=== PATIENT | male | born 1950 | race Caucasian/White ===

== ENCOUNTER → 2017-12-02 | Outpatient (CLI) | payer MEDICARE, BC ==
[2017-12-02 15:01] LABS: Basophils # (A) 0.1 k/uL (0-0.2); Basophils % (A) 1 %; Eosinophils # (A) 0.2 k/uL (0-0.7); Eosinophils % (A) 4 %; HCT 41.7 % (39.0-53.0); HGB 13.7 gm/dL (13.0-17.5); Lymphocytes # (A) 0.7 k/uL (1.0-4.8); Lymphocytes % (A) 13 %; MCH 31.2 pg (25.0-35.0); MCHC 32.8 g/dL (31.0-37.0); Mean Platelet Volume 7.8; Monocytes # (A) 0.5 k/uL (0-1.0); Monocytes % (A) 9 %; Neutrophils # (A) 3.8 k/uL (1.3-7.7); Neutrophils % (A) 71 %; Platelet Count 178 k/uL (150-450); RBC 4.39 m/uL (4.30-5.90); WBC 5.4 k/uL (3.8-10.6)
[2017-12-02 15:17] LABS: Albumin 4.5 g/dL (3.5-5.0); Calcium 10.5 mg/dL (8.4-10.2); Potassium 5.2 mmol/L (3.5-5.1); Total Bilirubin 0.2 mg/dL (0.2-1.3); Total Protein 7.4 g/dL (6.3-8.2)
[2017-12-02 15:33] LABS: T4, Free (Free Thyroxine) 0.97 ng/dL (0.78-2.19)
[2017-12-02 18:37] LABS: Iron Saturation 27.41 (15.00-50.00)
== END | disposition home or self-care (01) ==
LOC: LABWHC1 14:36
PROVIDERS: ATTEND Internal Medicine
DX: C34.90 Malignant neoplasm of unspecified part of unspecified bronchus or lung (principal); E78.5 Hyperlipidemia, unspecified; R79.89 Other specified abnormal findings of blood chemistry; D50.9 Iron deficiency anemia, unspecified
CPT/HCPCS: 36415; 80053; 80061; 82728; 83540; 83550; 84439; 84443; 85025

== ENCOUNTER → 2018-06-27 | Outpatient (CLI) | payer MEDICARE, BC | END | disposition home or self-care (01) | LOC: LABWHC1 07:26 | PROVIDERS: ATTEND Psychiatry & Neurology Psychiatry | DX: F25.9 Schizoaffective disorder, unspecified (principal) | CPT/HCPCS: 36415; 80164; 84450; 84460 ==

== ENCOUNTER → 2019-03-02 | Outpatient (CLI) | payer MEDICARE, BC ==
[2019-03-02 07:45] LABS: Basophils # (A) 0.1 k/uL (0-0.2); Basophils % (A) 2 %; Eosinophils # (A) 0.5 k/uL (0-0.7); Eosinophils % (A) 9 %; HCT 44.7 % (39.0-53.0); HGB 14.9 gm/dL (13.0-17.5); Lymphocytes % (A) 16 %; MCH 32.2 pg (25.0-35.0); MCHC 33.3 g/dL (31.0-37.0); MCV 96.9 fL (80.0-100.0); Mean Platelet Volume 7.2; Monocytes # (A) 0.6 k/uL (0-1.0); Monocytes % (A) 9 %; Neutrophils # (A) 3.8 k/uL (1.3-7.7); Neutrophils % (A) 62 %; Platelet Count 175 k/uL (150-450); RBC 4.61 m/uL (4.30-5.90); RDW 12.8 % (11.5-15.5); WBC 6.1 k/uL (3.8-10.6)
[2019-03-02 11:15] LABS: African American GFR (CKD) 72.6 (60.0-200.0); Albumin 4.3 g/dL (3.80-4.90); Albumin/Globulin Ratio 1.72 (1.60-3.17); Anion Gap 7.2 mmol/L (4.00-12.00); BUN/Creat Ratio 20.83 Ratio (12.00-20.00); Calcium 9.8 mg/dL (8.7-10.3); Carbon Dioxide 27.8 mmol/L (21.6-31.8); Chol/HDL Ratio 2.14; Globulin 2.5 g/dL (1.6-3.3); LDL Cholesterol,Calculated 74.8 mg/dL (0.0-131.0); Total Bilirubin 0.4 mg/dL (0.3-1.2); Total Protein 6.8 g/dL (6.2-8.2); VLDL Calculation 17.2 mg/dL (5.00-40.00)
[2019-03-02 11:23] LABS: T4, Free (Free Thyroxine) 1.3 ng/dL (0.80-1.80)
== END | disposition home or self-care (01) ==
LOC: LABWHC1 07:13
PROVIDERS: ATTEND Internal Medicine
DX: Z00.00 Encounter for general adult medical examination without abnormal findings (principal); E78.5 Hyperlipidemia, unspecified; F25.9 Schizoaffective disorder, unspecified
CPT/HCPCS: 36415; 80053; 80061; 80164; 84439; 84443; 85025

== ENCOUNTER → 2019-08-13 | Outpatient (CLI) | payer MEDICARE, BC ==
[2019-08-13 17:32] LABS: Basophils # (A) 0.1 k/uL (0-0.2); Basophils % (A) 1 %; Eosinophils # (A) 0.3 k/uL (0-0.7); Eosinophils % (A) 5 %; HGB 12.9 gm/dL (13.0-17.5); Lymphocytes # (A) 0.6 k/uL (1.0-4.8); Lymphocytes % (A) 11 %; MCH 32.7 pg (25.0-35.0); MCHC 32.3 g/dL (31.0-37.0); MCV 101.2 fL (80.0-100.0); Mean Platelet Volume 8.7; Monocytes # (A) 0.6 k/uL (0-1.0); Monocytes % (A) 10 %; Neutrophils % (A) 69 %; Platelet Count 175 k/uL (150-450); RBC 3.95 m/uL (4.30-5.90); RDW 13.1 % (11.5-15.5); WBC 5.8 k/uL (3.8-10.6)
[2019-08-14 00:52] LABS: African American GFR (CKD) 59.8 (60.0-200.0); Anion Gap 7.1 mmol/L (4.00-12.00); Calcium 10.3 mg/dL (8.7-10.3); Carbon Dioxide 29.9 mmol/L (21.6-31.8); Non-African American GFR(CKD) 51.6 (60.0-200.0)
[2019-08-14 10:14] LABS: Potassium 6.1 mmol/L (3.5-5.5)
== END | disposition home or self-care (01) ==
LOC: LABWHC1 16:19
PROVIDERS: ATTEND Internal Medicine
DX: R06.02 Shortness of breath (principal); R06.00 Dyspnea, unspecified
CPT/HCPCS: 36415; 80048; 85025; 85379

== ENCOUNTER 2019-08-14 10:52 | Emergency (ER) | payer MEDICARE, BC ==
[2019-08-14 11:03] VITALS: TEMP 98
--- NOTE | 2019-08-14 11:24 | ED ---
General Adult HPI - General Chief complaint: Recheck/Abnormal Lab/Rx Stated complaint: abn labs, SOB Time Seen by Provider: 08/14/19 11:10 Source: patient, RN notes reviewed Mode of arrival: ambulatory Limitations: no limitations - History of Present Illness Initial comments: Patient is a pleasant 69-year-old male presenting to the emergency department with abnormal labs. Patient did see Dr. Bashir yesterday and had blood work done. Call received today with potassium 6.1 and recommended coming to the emergency Center. Patient has had some cough and difficulty breathing. Patient does have history of previous no neck to be secondary to lung cancer. Patient was started on antibiotics yesterday. Patient did have some discomfort right lower ribs however that has resolved. - Related Data Home Medications Medication Instructions Recorded Confirmed Amantadine HCl [Symmetrel] 100 mg PO BID 12/10/14 11/30/15 LORazepam [Ativan] 1 mg PO TID 12/10/14 11/30/15 Levothyroxine Sodium [Synthroid] 25 mcg PO DAILY 12/10/14 11/30/15 QUEtiapine [SEROquel] 200 mg PO HS 12/10/14 11/30/15 Thiothixene [Navane] 20 mg PO TID 12/10/14 11/30/15 diphenhydrAMINE [Benadryl] 50 mg PO HS 12/10/14 11/30/15 Atorvastatin [Lipitor] 40 mg PO DAILY 11/30/15 11/30/15 Docusate [Colace] 100 mg PO TID PRN 11/30/15 11/30/15 Metoprolol Tartrate [Lopressor] 25 mg PO BID 11/30/15 11/30/15 Mirtazapine [Remeron] 15 mg PO HS 11/30/15 11/30/15 Previous Rx's Medication Instructions Recorded Aspirin 325 mg PO DAILY #30 tab 12/16/14 Allergies Allergy/AdvReac Type Severity Reaction Status Date / Time No Known Allergies Allergy Verified 11/30/15 17:50 Review of Systems ROS Statement: Those systems with pertinent positive or pertinent negative responses have been documented in the HPI. ROS Other: All systems not noted in ROS Statement are negative. Constitutional: Denies: fever Eyes: Denies: eye pain ENT: Denies: ear pain Respiratory: Reports: cough Cardiovascular: Reports: as per HPI Endocrine: Denies: fatigue Gastrointestinal: Denies: abdominal pain Genitourinary: Denies: dysuria Musculoskeletal: Denies: back pain Skin: Denies: rash Neurological: Denies: weakness Past Medical History Past Medical History: Cancer, Chest Pain / Angina, GERD/Reflux, Thyroid Disorder Additional Past Medical History / Comment(s): hx lung cancer History of Any Multi-Drug Resistant Organisms: None Reported Past Surgical History: Tonsillectomy Additional Past Surgical History / Comment(s): left pneumonectomy Past Anesthesia/Blood Transfusion Reactions: No Reported Reaction Past Psychological History: Anxiety, Depression, Schizophrenia Smoking Status: Former smoker Past Alcohol Use History: None Reported Past Drug Use History: None Reported - Past Family History Mother Family Medical History: No Reported History General Exam Limitations: no limitations General appearance: alert, in no apparent distress Head exam: Present: normocephalic Eye exam: Present: normal appearance, PERRL ENT exam: Present: normal oropharynx Neck exam: Present: normal inspection Respiratory exam: Present: rhonchi. Absent: chest wall tenderness Cardiovascular Exam: Present: regular rate, normal rhythm GI/Abdominal exam: Present: soft. Absent: tenderness Extremities exam: Present: normal inspection. Absent: pedal edema, calf tenderness Back exam: Present: normal inspection Neurological exam: Present: alert Psychiatric exam: Present: normal affect, normal mood Skin exam: Present: normal color Course Vital Signs 08/14/19 08/14/19 08/14/19 10:59 11:26 11:42 Temperature 98 F Pulse Rate 98 82 Respiratory 18 22 18 Rate Blood Pressure 100/69 120/88 O2 Sat by Pulse 97 97 Oximetry - Reevaluation(s) Reevaluation #1: 08/14/19 11:48 Case was discussed with Dr. Souza who is familiar with this patient and recommends potassium treatment and feels otherwise patient can likely be discharged EKG Findings - EKG Comments: EKG Findings:: Normal sinus rhythm 87. IL 186. QRS 92. QT 356. QTc 428. Left axis. Inferior Q waves. No acute ST change. Medical Decision Making - Medical Decision Making Patient reevaluated and resting comfortably in bed, symptom-free. Patient and family updated on results and need for follow-up. - Lab Data Result diagrams: 08/14/19 11:23 08/14/19 11:23 Lab Results 08/14/19 08/14/19 Range/Units 11:23 11:23 WBC 4.8 (3.8-10.6) k/uL RBC 4.07 L (4.30-5.90) m/uL Hgb 13.3 (13.0-17.5) gm/dL Hct 40.3 (39.0-53.0) % MCV 99.0 (80.0-100.0) fL MCH 32.7 (25.0-35.0) pg MCHC 33.0 (31.0-37.0) g/dL RDW 13.1 (11.5-15.5) % Plt Count 172 (150-450) k/uL Neutrophils % 72 % Lymphocytes % 10 % Monocytes % 8 % Eosinophils % 6 % Basophils % 1 % Neutrophils # 3.5 (1.3-7.7) k/uL Lymphocytes # 0.5 L (1.0-4.8) k/uL Monocytes # 0.4 (0-1.0) k/uL Eosinophils # 0.3 (0-0.7) k/uL Basophils # 0.1 (0-0.2) k/uL Sodium 141 (137-145) mmol/L Potassium 4.9 (3.5-5.1) mmol/L Chloride 105 (98-107) mmol/L Carbon Dioxide 24 (22-30) mmol/L Anion Gap 12 mmol/L BUN 28 H (9-20) mg/dL Creatinine 1.22 (0.66-1.25) mg/dL Est GFR (CKD-EPI)AfAm 71 (>60 ml/min/1.73 sqM) Est GFR (CKD-EPI)NonAf 61 (>60 ml/min/1.73 sqM) Glucose 115 H (74-99) mg/dL Calcium 10.4 H (8.4-10.2) mg/dL Phosphorus 3.7 (2.5-4.5) mg/dL Magnesium 2.0 (1.6-2.3) mg/dL Total Bilirubin 0.5 (0.2-1.3) mg/dL AST 56 (17-59) U/L ALT 51 H (4-49) U/L Alkaline Phosphatase 125 (38-126) U/L Total Protein 7.5 (6.3-8.2) g/dL Albumin 4.2 (3.5-5.0) g/dL Disposition Clinical Impression: Condition not found, Cough Disposition: HOME SELF-CARE Condition: Stable Instructions (If sedation given, give patient instructions): Acute Cough (ED) Additional Instructions: Please follow-up with Dr. Bashir in the next couple days for recheck. Return for difficulty breathing, fevers, worsening symptoms or other concerns. Is patient prescribed a controlled substance at d/c from ED?: No Referrals: Miguel Bashir MD [Primary Care Provider] - 1-2 days Time of Disposition: 12:27
[2019-08-14] MEDS ORDERED: SODIUM CHLORIDE 0.9% 500 ML 500 ML IV STA (11:35)
[2019-08-14] MEDS ORDERED: SODIUM CHLORIDE 0.9% 1,000 ML IV STA (11:35)
[2019-08-14 11:49] LABS: Basophils # (A) 0.1 k/uL (0-0.2); Basophils % (A) 1 %; Eosinophils # (A) 0.3 k/uL (0-0.7); Eosinophils % (A) 6 %; HCT 40.3 % (39.0-53.0); HGB 13.3 gm/dL (13.0-17.5); Lymphocytes # (A) 0.5 k/uL (1.0-4.8); Lymphocytes % (A) 10 %; MCH 32.7 pg (25.0-35.0); Mean Platelet Volume 8.5; Monocytes # (A) 0.4 k/uL (0-1.0); Monocytes % (A) 8 %; Neutrophils # (A) 3.5 k/uL (1.3-7.7); Neutrophils % (A) 72 %; Platelet Count 172 k/uL (150-450); RBC 4.07 m/uL (4.30-5.90); RDW 13.1 % (11.5-15.5); WBC 4.8 k/uL (3.8-10.6)
[2019-08-14 11:53] LABS: Albumin 4.2 g/dL (3.5-5.0); Calcium 10.4 mg/dL (8.4-10.2); Phosphorus 3.7 mg/dL (2.5-4.5); Potassium 4.9 mmol/L (3.5-5.1); Total Bilirubin 0.5 mg/dL (0.2-1.3); Total Protein 7.5 g/dL (6.3-8.2)
[2019-08-14 12:58] VITALS: BP 142/88; PULSE 78; RESP 16
== END 2019-08-14 12:57 | disposition home or self-care (01) ==
LOC: EC 10:52
DX: R05 Cough (principal); R06.00 Dyspnea, unspecified; R79.9 Abnormal finding of blood chemistry, unspecified; I20.9 Angina pectoris, unspecified; F41.9 Anxiety disorder, unspecified; F32.9 Major depressive disorder, single episode, unspecified; F20.9 Schizophrenia, unspecified; E07.9 Disorder of thyroid, unspecified; Z79.899 Other long term (current) drug therapy; Z79.890 Hormone replacement therapy; Z85.118 Personal history of other malignant neoplasm of bronchus and lung; Z87.891 Personal history of nicotine dependence; Z98.890 Other specified postprocedural states; E87.5 Hyperkalemia
CPT/HCPCS: 36415; 80053; 83735; 84100; 85025; 96360; 99285

== ENCOUNTER 2019-08-29 22:18 | Inpatient (IN) | payer MEDICARE, BC ==
[2019-08-29] MEDS ORDERED: SODIUM CHLORIDE 0.9% 1,000 ML IV STA (22:25)
[2019-08-29 22:27] LABS: Glucose,Whole Blood 205 mg/dL (75-99)
[2019-08-29] MEDS ORDERED: LORazepam 2 MG/ML INJ ONE ×3 (22:31→23:47)
[2019-08-29] MEDS: LORazepam 2 MG/ML INJ IM STA ×3 (22:33→22:53)
[2019-08-29 22:51] LABS: HCT 39.1 % (39.0-53.0); HGB 12.8 gm/dL (13.0-17.5); MCH 33.6 pg (25.0-35.0); MCHC 32.8 g/dL (31.0-37.0); MCV 102.5 fL (80.0-100.0); Macrocytosis Slight; Mean Platelet Volume 8.8; Platelet Count 181 k/uL (150-450); RBC 3.82 m/uL (4.30-5.90); RDW 12.7 % (11.5-15.5); WBC 7.5 k/uL (3.8-10.6)
[2019-08-29] MEDS ORDERED: PROPOFOL 100 ML IV ONE (22:51)
[2019-08-29 22:54] LABS: Partial Thromboplastin Time 22.1 sec (22.0-30.0); Prothrombin Time 10.6 sec (9.0-12.0)
[2019-08-29 22:58] LABS: Albumin 3.9 g/dL (3.5-5.0); Calcium 9.4 mg/dL (8.4-10.2); Potassium 5.5 mmol/L (3.5-5.1); Total Bilirubin 0.2 mg/dL (0.2-1.3)
[2019-08-29 23:32] LABS: Amorphous Sediment,Urine Occasional /hpf; Appearance,Urine Cloudy (Clear); Bacteria,Urine Rare /hpf; Bilirubin,Urine Negative (Negative); Blood,Urine Negative (Negative); Color,Urine Yellow; Glucose,Urine (UA) Negative (Negative); Hyaline Casts,Urine 72 /lpf (0-2); Ketones,Urine Negative (Negative); Leukocyte Esterase,Urine Negative (Negative); Mucus,Urine Rare /hpf; Nitrite,Urine Negative (Negative); Protein,Urine 1+ (Negative); RBC,Urine 2 /hpf (0-5); Specific Gravity,Urine 1.024 (1.001-1.035); Squamous Epithelial Cell,Urine <1 /hpf (0-4); Urobilinogen,Urine <2.0 mg/dL (<2.0); WBC,Urine 9 /hpf (0-5)
[2019-08-29] MEDS ORDERED: PROPOFOL 1,000 MG in EMPTY BAG 1 BAG IV ONE (23:32)
[2019-08-29 23:36] LABS: Cocaine Screen,Urine Not Detected (NotDetected); Phencyclidine Screen,Urine Not Detected (NotDetected); Urn Cannabinoid Scrn Not Detected (NotDetected)
[2019-08-29 23:37] LABS: Amphetamine Screen,Urine Not Detected (NotDetected); Barbiturate Screen,Urine Not Detected (NotDetected); Benzodiazepines Screen,Urine Detected (NotDetected); Methadone Screen, Urine Not Detected (NotDetected); Opiate Screen,Urine Not Detected (NotDetected); Oxycodone Screen, Urine Not Detected (NotDetected); Tricyclic Antidepressant,Urine Detected (NotDetected)
[2019-08-29] MEDS ORDERED: LORazepam 2 MG/ML INJ IV STA (23:45)
--- NOTE | 2019-08-29 23:48 | CT ---
EXAMINATION TYPE: CT chest wo con DATE OF EXAM: 08/29/2019 COMPARISON: HISTORY: AMS CT DLP: 320.5 mGycm Automated exposure control for dose reduction was used. Multiple axial sections were obtained from the thoracic inlet to the diaphragm with no contrast. There is endotracheal tube with the tip extending to the origin of the left mainstem bronchus. There is a left pneumonectomy. There is mild pleural fluid on the left side. There is shift of heart and me diastinum to the left side. There is hiatal hernia. There is 1.8 cm irregular infiltrate in the anter ior segment of the right upper lobe. The remainder of the right lung is clear. There is mild pulmonar y emphysema. There is some irregularity rounded filling defect in the right mainstem bronchus. This could be a muc ous plug or even small tumor. Thoracic spine is intact. Sternum is intact. I see no bony destructive process. Shoulder joints are i ntact. Visualized upper abdominal soft tissues appear intact. IMPRESSION: Endotracheal tube is low and could be pulled back 3 cm. There is obstructing lesion in the right main stem bronchus. This could be some mucous plugging or even small tumor. Follow-up recommended. Changes of left-sided pneumonectomy with volume loss and shift of heart to the left side. Small infiltrate anterior segment right upper lobe is nonspecific. Follow-up is recommended. Recurren t tumor is possible.
--- NOTE | 2019-08-29 23:52 | CT ---
EXAMINATION TYPE: CT brain wo con DATE OF EXAM: 08/29/2019 COMPARISON: 04/10/2012 HISTORY: AMS CT DLP: 1113.4 mGycm Automated exposure control for dose reduction was used. Exam performed with no contrast. There is cerebral cortical atrophy. There is no mass effect nor midline shift. There is no sign of in tracranial hemorrhage. The calvarium is intact. There is some mucosal thickening in the ethmoid air c ells. IMPRESSION: Cerebral atrophy. No acute intracranial abnormality. There is probably a 4 mm old lacunar infarct ant erior left internal capsule. No change compared to old exam.
[2019-08-30 00:06] LABS: Band Neutrophils % 5 %; Eosinophils # (M) 0.23 k/uL (0-0.7); Lymphocytes # (M) 0.45 k/uL (1.0-4.8); Metamyelocytes # (M) 0.08 k/uL (0); Metamyelocytes % 1 %; Neutrophils % (M) 81 %; Nucleated Red Blood Cells 0 /100 WBC (0-0); Total Cells Counted 100
[2019-08-30] MEDS ORDERED: ACETAMINOPHEN SUPPOSITORY 650 MG SUPP RECTAL PRN (00:27)
[2019-08-30] MEDS ORDERED: MORPHINE SULFATE 4 MG/ML SYRINGE IV PRN (00:27)
[2019-08-30] MEDS ORDERED: NALOXONE 0.4 MG/ML 1 ML VIAL IV PRN (00:27)
--- NOTE | 2019-08-30 00:31 | ED ---
SOB HPI - General Chief Complaint: Shortness of Breath Stated Complaint: Unresponsive Time Seen by Provider: 08/29/19 22:25 Source: patient, EMS Mode of arrival: EMS Limitations: altered mental status - History of Present Illness Initial Comments: 's patient is a 69-year-old man brought to be evaluated for shortness of breath and altered mental status. He does have history of previous left pneumonectomy due to cancer approximately 10 years ago. The patient had reportedly been eating hamburger upper tonight when he had a choking episode. He had a prolonged coughing episode and then continued to feel short of breath. He eventually became weak and less responsive and family called EMS. When EMS arrived, they stated that the patient was not responding to them, and the patient was therefore intubated. On arrival patient not able to give any h istory due to altered mental status. MD Complaint: shortness of breath Onset/Timin -: hour(s) - Related Data Home Medications Medication Instructions Recorded Confirmed Amantadine HCl [Symmetrel] 100 mg PO BID 12/10/14 11/30/15 LORazepam [Ativan] 1 mg PO TID 12/10/14 11/30/15 Levothyroxine Sodium [Synthroid] 25 mcg PO DAILY 12/10/14 11/30/15 QUEtiapine [SEROquel] 200 mg PO HS 12/10/14 11/30/15 Thiothixene [Navane] 20 mg PO TID 12/10/14 11/30/15 diphenhydrAMINE [Benadryl] 50 mg PO HS 12/10/14 11/30/15 Atorvastatin [Lipitor] 40 mg PO DAILY 11/30/15 11/30/15 Docusate [Colace] 100 mg PO TID PRN 11/30/15 11/30/15 Metoprolol Tartrate [Lopressor] 25 mg PO BID 11/30/15 11/30/15 Mirtazapine [Remeron] 15 mg PO HS 11/30/15 11/30/15 Previous Rx's Medication Instructions Recorded Aspirin 325 mg PO DAILY #30 tab 12/16/14 Allergies Allergy/AdvReac Type Severity Reaction Status Date / Time No Known Allergies Allergy Verified 11/30/15 17:50 Review of Systems ROS Statement: Those systems with pertinent positive or pertinent negative responses have been documented in the HPI. ROS Other: All systems not noted in ROS Statement are negative. Limitations: ROS unobtainable due to patients medical condition Respiratory: Reports: as per HPI, cough, dyspnea Past Medical History Past Medical History: Cancer, Chest Pain / Angina, GERD/Reflux, Thyroid Disorder Additional Past Medical History / Comment(s): hx lung cancer History of Any Multi-Drug Resistant Organisms: None Reported Past Surgical History: Tonsillectomy Additional Past Surgical History / Comment(s): left pneumonectomy Past Anesthesia/Blood Transfusion Reactions: No Reported Reaction Past Psychological History: Anxiety, Depression, Schizophrenia Smoking Status: Former smoker Past Alcohol Use History: None Reported Past Drug Use History: None Reported - Past Family History Mother Family Medical History: No Reported History General Exam Limitations: altered mental status General appearance: obtunded Head exam: Present: atraumatic, normocephalic Eye exam: Present: normal appearance, PERRL. Absent: scleral icterus, conjunctival injection ENT exam: Present: other (Endotracheal tube present) Neck exam: Present: normal inspection Respiratory exam: Present: rhonchi. Absent: wheezes, rales Cardiovascular Exam: Present: normal rhythm, tachycardia, normal heart sounds. Absent: systolic murmur, diastolic murmur, rubs, gallop GI/Abdominal exam: Present: soft. Absent: distended, tenderness, guarding, rebound, mass Extremities exam: Present: normal inspection, normal capillary refill. Absent: pedal edema, calf tenderness Back exam: Present: normal inspection Skin exam: Present: warm, dry, intact, normal color. Absent: rash Course Vital Signs 08/29/19 08/29/19 08/29/19 22:20 22:29 22:41 Temperature 97.8 F Pulse Rate 106 H 104 H 105 H Respiratory 18 18 20 Rate Blood Pressure 89/45 98/74 109/65 O2 Sat by Pulse 99 100 Oximetry 08/29/19 08/29/19 08/29/19 22:47 22:52 23:01 Temperature Pulse Rate 94 Respiratory 18 Rate Blood Pressure 93/70 107/77 79/51 O2 Sat by Pulse 100 Oximetry 08/29/19 08/29/19 08/29/19 23:24 23:38 23:52 Temperature Pulse Rate 86 84 85 Respiratory 19 18 20 Rate Blood Pressure 107/85 101/75 108/85 O2 Sat by Pulse 100 100 100 Oximetry - Reevaluation(s) Reevaluation #1: 08/30/19 00:[address] Souza, including CT result, and he anticipates bronch oscopy first thing in a.m. Medical Decision Making - Lab Data Result diagrams: 08/29/19 22:23 08/29/19 22:23 Lab Results 08/29/19 08/29/19 08/29/19 Range/Units 22:23 22:23 22:23 WBC 7.5 (3.8-10.6) k/uL RBC 3.82 L (4.30-5.90) m/uL Hgb 12.8 L (13.0-17.5) gm/dL Hct 39.1 (39.0-53.0) % MCV 102.5 H (80.0-100.0) fL MCH 33.6 (25.0-35.0) pg MCHC 32.8 (31.0-37.0) g/dL RDW 12.7 (11.5-15.5) % Plt Count 181 (150-450) k/uL Neutrophils % (Manual) 81 % Band Neutrophils % 5 % Lymphocytes % (Manual) 6 % Monocytes % (Manual) 4 % Eosinophils % (Manual) 3 % Metamyelocytes % 1 % Neutrophils # (Manual) 6.40 (1.3-7.7) k/uL Lymphocytes # (Manual) 0.45 L (1.0-4.8) k/uL Monocytes # (Manual) 0.30 (0-1.0) k/uL Eosinophils # (Manual) 0.23 (0-0.7) k/uL Metamyelocytes # (Man) 0.08 H (0) k/uL Nucleated RBCs 0 (0-0) /100 WBC Manual Slide Review Performed Macrocytosis Slight PT 10.6 (9.0-12.0) sec INR 1.0 (<1.2) APTT 22.1 (22.0-30.0) sec Sodium 139 (137-145) mmol/L Potassium 5.5 H (3.5-5.1) mmol/L Chloride 105 (98-107) mmol/L Carbon Dioxide 25 (22-30) mmol/L Anion Gap 9 mmol/L BUN 39 H (9-20) mg/dL Creatinine 1.22 (0.66-1.25) mg/dL Est GFR (CKD-EPI)AfAm 71 (>60 ml/min/1.73 sqM) Est GFR (CKD-EPI)NonAf 61 (>60 ml/min/1.73 sqM) Glucose 214 H (74-99) mg/dL POC Glucose (mg/dL) (75-99) mg/dL POC Glu Ship[employer] Master ID Calcium 9.4 (8.4-10.2) mg/dL Total Bilirubin 0.2 (0.2-1.3) mg/dL AST 50 (17-59) U/L ALT 47 (4-49) U/L Alkaline Phosphatase 188 H (38-126) U/L Troponin I (0.000-0.034) ng/mL Total Protein 7.0 (6.3-8.2) g/dL Albumin 3.9 (3.5-5.0) g/dL Urine Color Urine Appearance (Clear) Urine pH (5.0-8.0) Ur Specific [place] (1.001-1.035) Urine Protein (Negative) Urine Glucose (UA) (Negative) Urine Ketones (Negative) Urine Blood (Negative) Urine Nitrite (Negative) Urine Bilirubin (Negative) Urine Urobilinogen (<2.0) mg/dL Ur Leukocyte Esterase (Negative) Urine RBC (0-5) /hpf Urine WBC (0-5) /hpf Ur Squamous Epith Cells (0-4) /hpf Amorphous Sediment (None) /hpf Urine Bacteria (None) /hpf Hyaline Casts (0-2) /lpf Urine Mucus (None) /hpf Urine Opiates Screen (NotDetected) Ur Oxycodone Screen (NotDetected) Urine Methadone Screen (NotDetected) Ur Propoxyphene Screen (NotDetected) Ur Barbiturates Screen (NotDetected) U Tricyclic Antidepress (NotDetected) Ur Phencyclidine Scrn (NotDetected) Ur Amphetamines Screen (NotDetected) U Methamphetamines Scrn (NotDetected) U Benzodiazepines Scrn (NotDetected) Urine Cocaine Screen (NotDetected) U Marijuana (THC) Screen (NotDetected) 08/29/19 08/29/19 08/29/19 Range/Units 22:23 22:26 22:40 WBC (3.8-10.6) k/uL RBC (4.30-5.90) m/uL Hgb (13.0-17.5) gm/dL Hct (39.0-53.0) % MCV (80.0-100.0) fL MCH (25.0-35.0) pg MCHC (31.0-37.0) g/dL RDW (11.5-15.5) % Plt Count (150-450) k/uL Neutrophils % (Manual) % Band Neutrophils % % Lymphocytes % (Manual) % Monocytes % (Manual) % Eosinophils % (Manual) % Metamyelocytes % % Neutrophils # (Manual) (1.3-7.7) k/uL Lymphocytes # (Manual) (1.0-4.8) k/uL Monocytes # (Manual) (0-1.0) k/uL Eosinophils # (Manual) (0-0.7) k/uL Metamyelocytes # (Man) (0) k/uL Nucleated RBCs (0-0) /100 WBC Manual Slide Review Macrocytosis PT (9.0-12.0) sec INR (<1.2) APTT (22.0-30.0) sec Sodium (137-145) mmol/L Potassium (3.5-5.1) mmol/L Chloride (98-107) mmol/L Carbon Dioxide (22-30) mmol/L Anion Gap mmol/L BUN (9-20) mg/dL Creatinine (0.66-1.25) mg/dL Est GFR (CKD-EPI)AfAm (>60 ml/min/1.73 sqM) Est GFR (CKD-EPI)NonAf (>60 ml/min/1.73 sqM) Glucose (74-99) mg/dL POC Glucose (mg/dL) 205 H (75-99) mg/dL POC Glu Ship[employer] Master ID [place] Pro Calcium (8.4-10.2) mg/dL Total Bilirubin (0.2-1.3) mg/dL AST (17-59) U/L ALT (4-49) U/L Alkaline Phosphatase (38-126) U/L Troponin I 0.018 (0.000-0.034) ng/mL Total Protein (6.3-8.2) g/dL Albumin (3.5-5.0) g/dL Urine Color Yellow Urine Appearance Cloudy (Clear) Urine pH 5.0 (5.0-8.0) Ur Specific [place] 1.024 (1.001-1.035) Urine Protein 1+ H (Negative) Urine Glucose (UA) Negative (Negative) Urine Ketones Negative (Negative) Urine Blood Negative (Negative) Urine Nitrite Negative (Negative) Urine Bilirubin Negative (Negative) Urine Urobilinogen <2.0 (<2.0) mg/dL Ur Leukocyte Esterase Negative (Negative) Urine RBC 2 (0-5) /hpf Urine WBC 9 H (0-5) /hpf Ur Squamous Epith Cells <1 (0-4) /hpf Amorphous Sediment Occasional H (None) /hpf Urine Bacteria Rare H (None) /hpf Hyaline Casts 72 H (0-2) /lpf Urine Mucus Rare H (None) /hpf Urine Opiates Screen Not Detected (NotDetected) Ur Oxycodone Screen Not Detected (NotDetected) Urine Methadone Screen Not Detected (NotDetected) Ur Propoxyphene Screen Not Detected (NotDetected) Ur Barbiturates Screen Not Detected (NotDetected) U Tricyclic Antidepress Detected H (NotDetected) Ur Phencyclidine Scrn Not Detected (NotDetected) Ur Amphetamines Screen Not Detected (NotDetected) U Methamphetamines Scrn Detected H (NotDetected) U Benzodiazepines Scrn Detected H (NotDetected) Urine Cocaine Screen Not Detected (NotDetected) U Marijuana (THC) Screen Not Detected (NotDetected) Disposition Clinical Impression: Asphyxiation, foreign body, bronchus Disposition: ADMITTED IP TO THIS [facility] Condition: Critical Referrals: Miguel Bashir MD [Primary Care Provider] - 1-2 days
[2019-08-30 01:03] LABS: ABG Base Excess 2.6 mmol/L; ABG HCO3 29 mmol/L (21-25); ABG Oxygen Saturation 99.8 % (94-97); ABG PCO2 55 mmHg (35-45); ABG PH 7.32 (7.35-7.45); ABG PO2 >400 mmHg (83-108); ABG TCO2 30 mmol/L (19-24); Allen Test Performed? Yes
[2019-08-30 01:42] LABS: Glucose,Whole Blood 97 mg/dL (75-99)
[2019-08-30] MEDS: SODIUM CHLORIDE 0.9% 1,000 ML IV SCH ×3 (01:55→16:01)
[2019-08-30] MEDS ORDERED: ARTIFICIAL TEARS OINTMENT 3.5 GM TUBE BOTH EYES PRN (04:00)
[2019-08-30 05:16] LABS: Basophils % (A) 0 %; Eosinophils # (A) 0.1 k/uL (0-0.7); Eosinophils % (A) 1 %; HCT 38.3 % (39.0-53.0); HGB 12.3 gm/dL (13.0-17.5); Lymphocytes # (A) 0.4 k/uL (1.0-4.8); Lymphocytes % (A) 5 %; MCH 32.6 pg (25.0-35.0); MCV 101.8 fL (80.0-100.0); Mean Platelet Volume 8.8; Monocytes # (A) 0.8 k/uL (0-1.0); Monocytes % (A) 9 %; Neutrophils # (A) 7.2 k/uL (1.3-7.7); Neutrophils % (A) 84 %; Platelet Count 176 k/uL (150-450); RBC 3.76 m/uL (4.30-5.90); RDW 12.7 % (11.5-15.5); WBC 8.6 k/uL (3.8-10.6)
[2019-08-30 05:18] LABS: ABG Base Excess 3.1 mmol/L; ABG HCO3 28 mmol/L (21-25); ABG Oxygen Saturation 99.8 % (94-97); ABG PCO2 46 mmHg (35-45); ABG PH 7.39 (7.35-7.45); ABG PO2 321 mmHg (83-108); ABG TCO2 30 mmol/L (19-24); Allen Test Performed? Yes
[2019-08-30 05:30] LABS: Calcium 9.4 mg/dL (8.4-10.2)
[2019-08-30] MEDS: PROPOFOL 1,000 MG in EMPTY BAG 1 BAG IV SCH ×2 (06:19→22:27)
[2019-08-30] MEDS ORDERED: LEVOFLOXACIN 750MG-D5W PMX 750 MG in DEXTROSE/WATER 1 150ML.BAG IVPB SCH (08:00)
[2019-08-30] MEDS ORDERED: PIPERACILLIN-TAZOBACTAM 3.375 GM in SODIUM CHLORIDE 0.9% 100 ML IVPB SCH (08:00)
--- NOTE | 2019-08-30 08:07 | XR ---
EXAMINATION TYPE: XR chest 1V DATE OF EXAM: 08/30/2019 COMPARISON: 12/13/2014 , 08/29/2019, and 08/13/2019 HISTORY: 69-year-old male placement TECHNIQUE: Single frontal view of the chest is obtained. FINDINGS: ET tube is in place. NG tube tip courses to the level of the diaphragm. The sidehole is located appro ximately 6 cm above the expected GE junction. Redemonstrated postoperative changes of left pneumonectomy with complete shift of the cardiac mediast inum to the left side of the chest. Findings surgical clips. Right lung and pleural space appear wilfredo r. Vague right upper lobe density redemonstrated. IMPRESSION: 1. Status post left pneumonectomy with shift of the heart and mediastinum into the left side of the c hest, unchanged. 2. The NG tube is short. The tip is at the expected GE junction level. Advanced by approximately 8 cm further into the stomach. 3. Vague right upper lobe density, possible pulmonary nodule redemonstrated. Please refer to CT chest of 08/29/2019 for the details. 4. Right mainstem endobronchial lesion not appreciable radiographically.
[2019-08-30] MEDS: CHLORHEXIDINE GLUCONATE 15 ML CUP MUCOUS MEM SCH ×2 (08:23→21:12)
[2019-08-30] MEDS: FAMOTIDINE 20 MG/2 ML VIAL IV SCH ×2 (08:23→21:12)
--- NOTE | 2019-08-30 08:48 | P.CNPUL ---
History of Present Illness Consult date: 08/30/19 Chief complaint: Aspiration, respiratory failure History of present illness: 69-year-old male patient who came in yesterday because of respiratory failure. The patient has history of pneumonectomy on the left around 12 years ago for an underlying non-small cell lung cancer. Yesterday he became acutely short of breath. He was eating hamburger and he choked and aspirated and following that he developed coughing spells and he was unable to bring up any food material. Ultimately failed and he became unresponsive and the family called EMS. When EMS arrived to the scene, the patient was intubated. He was given a #7 orotracheal tube and he was brought into the emergency department. CAT scan of the chest was done and shows a left pneumonectomy and fluid material occupying the right mainstem bronchus. Currently is on a mechanical ventilator. Earlier this morning he was a tidal volume of 400 with an FiO2 of 60% and a PEEP of 5. The blood gases from this morning showed a pH of 7.39 with a pCO2 of 46 and pO2 of 321. The peak airway pressure was as high as 43. Eye doctor tidal volume down to 250. Potassium level is at 6.0 and the patient's tendency to have hyperkalemia as noted on previous labs. He is well sedated with propofol. Breath sounds are diminished/absent on the left, and quite diminished on the right. Patient is sedated with propofol. The plan is to proceed with a bronchoscopy. He is known to have paranoid schizophrenia. He has hypothyroidism and hypertension and hyperlipidemia as comorbidities. The pat ient is hemodynamically stable for now. Review of Systems ROS unobtainable: due to endotracheal tube Past Medical History Past Medical History: Cancer, Chest Pain / Angina, GERD/Reflux, Thyroid Disorder Additional Past Medical History / Comment(s): hx lung cancer mom previous pneumonectomy, paranoid schizophrenia, hypertension, hypothyroidism and hyperlipidemia and COPD History of Any Multi-Drug Resistant Organisms: None Reported Past Surgical History: Tonsillectomy Additional Past Surgical History / Comment(s): Complete left pneumonectomy Past Anesthesia/Blood Transfusion Reactions: No Reported Reaction Past Psychological History: Anxiety, Depression, Schizophrenia Additional Psychological History / Comment(s): paranoid schizophrenia Smoking Status: Former smoker Past Alcohol Use History: None Reported Past Drug Use History: None Reported - Past Family History Mother Family Medical History: Myocardial Infarction (NE) Medications and Allergies Home Medications Medication Instructions Recorded Confirmed Type Amantadine HCl [Symmetrel] 100 mg PO BID 12/10/14 11/30/15 History LORazepam [Ativan] 1 mg PO TID 12/10/14 11/30/15 History Levothyroxine Sodium [Synthroid] 25 mcg PO DAILY 12/10/14 11/30/15 History QUEtiapine [SEROquel] 200 mg PO HS 12/10/14 11/30/15 History Thiothixene [Navane] 20 mg PO TID 12/10/14 11/30/15 History diphenhydrAMINE [Benadryl] 50 mg PO HS 12/10/14 11/30/15 History Aspirin 325 mg PO DAILY #30 tab 12/16/14 11/30/15 Rx Atorvastatin [Lipitor] 40 mg PO DAILY 11/30/15 11/30/15 History Docusate [Colace] 100 mg PO TID PRN 11/30/15 11/30/15 History Metoprolol Tartrate [Lopressor] 25 mg PO BID 11/30/15 11/30/15 History Mirtazapine [Remeron] 15 mg PO HS 11/30/15 11/30/15 History Allergies Allergy/AdvReac Type Severity Reaction Status Date / Time No Known Allergies Allergy Verified 11/30/15 17:50 Physical Exam Vitals: Vital Signs Temp Pulse Resp BP Pulse Ox 08/30/19 07:00 87 18 106/74 100 08/30/19 06:00 86 18 109/60 100 08/30/19 05:00 75 18 93/66 100 08/30/19 04:00 80 18 89/61 100 08/30/19 03:03 81 18 114/83 100 08/30/19 01:40 97.5 F L 12 08/29/19 23:52 85 20 108/85 100 08/29/19 23:38 84 18 101/75 100 08/29/19 23:24 86 19 107/85 100 08/29/19 23:01 94 18 79/51 100 08/29/19 22:52 107/77 08/29/19 22:47 93/70 08/29/19 22:41 105 H 20 109/65 08/29/19 22:29 104 H 18 98/74 100 08/29/19 22:20 97.8 F 106 H 18 89/45 99 Intake and Output 08/29/19 08/30/19 08/30/19 21:59 06:59 14:59 Intake Total 134.049 Output Total 30 Balance 104.049 Intake: Intake, IV Titration 134.049 Amount Propofol 1,000 mg In Empty Bag 1 bag @ Titrate IV .Q0M ONE Rx#: [id number] Propofol 1,000 mg In 9.049 Empty Bag 1 bag @ Titrate IV .Q0M INA Rx#: [id number] Sodium Chloride 0.9% 1, 125 000 ml @ 125 mls/hr IV . Q8H INA Rx#:[id number] Output: Urine 30 Other: Voiding Method Weight Intubated on a mechanical ventilator, comfortable sedated Head exam was generally normal. There was no scleral icterus or corneal arcus. Mucous membranes were moist. Neck was supple and without jugular venous distension, thyromegaly, or carotid bruits. Carotids were easily palpable bilaterally. There was no adenopathy. Lung examination shows no breath sounds on the left, diminished breath sounds in the right. Orotracheal tube is in place. No significant wheezes or rhonchi on the right. Cardiac exam revealed the PMI to be normally situated and sized. The rhythm was regular and no extrasystoles were noted during several minutes of auscultation. The first and second heart sounds were normal and physiologic splitting of the second heart sound was noted. There were no murmurs, rubs, clicks, or gallops. Abdominal exam revealed normal bowel sounds. The abdomen was soft, non-tender, and without masses, organomegaly, or appreciable enlargement of the abdominal aorta. Examination of the extremities revealed easily palpable radial, femoral and pedal pulses. There was no cyanosis, clubbing or edema. Examination of the skin revealed no evidence of significant rashes, suspicious appearing nevi or other concerning lesions. Neurologic the patient is sedated Psychiatric negative history of schizophrenia and there is no ability to do a psych evaluation at this point in time. Results - Laboratory Findings CBC and BMP: 08/30/19 04:41 08/30/19 04:41 ABG ABG pH 7.39 (7.35-7.45) 08/30/19 05:16 ABG pCO2 46 mmHg (35-45) H 08/30/19 05:16 ABG pO2 321 mmHg (83-108) H 08/30/19 05:16 ABG O2 Saturation 99.8 % (94-97) H 08/30/19 05:16 PT/INR, D-dimer PT 10.6 sec (9.0-12.0) 08/29/19 22:23 INR 1.0 (<1.2) 08/29/19 22:23 Abnormal lab findings: Abnormal Labs 08/29/19 08/29/19 08/29/19 22:23 22:23 22:26 RBC 3.82 L Hgb 12.8 L Hct MCV 102.5 H Lymphocytes # Lymphocytes # (Manual) 0.45 L Metamyelocytes # (Man) 0.08 H ABG pH ABG pCO2 ABG pO2 ABG HCO3 ABG Total CO2 ABG O2 Saturation Potassium 5.5 H BUN 39 H Glucose 214 H POC Glucose (mg/dL) 205 H Alkaline Phosphatase 188 H Urine Protein Urine WBC Amorphous Sediment Urine Bacteria Hyaline Casts Urine Mucus U Tricyclic Antidepress U Methamphetamines Scrn U Benzodiazepines Scrn 08/29/19 08/30/19 08/30/19 22:40 00:59 04:41 RBC 3.76 L Hgb 12.3 L Hct 38.3 L MCV 101.8 H Lymphocytes # 0.4 L Lymphocytes # (Manual) Metamyelocytes # (Man) ABG pH 7.32 L ABG pCO2 55 H ABG pO2 >400 H ABG HCO3 29 H ABG Total CO2 30 H ABG O2 Saturation 99.8 H Potassium BUN Glucose POC Glucose (mg/dL) Alkaline Phosphatase Urine Protein 1+ H Urine WBC 9 H Amorphous Sediment Occasional H Urine Bacteria Rare H Hyaline Casts 72 H Urine Mucus Rare H U Tricyclic Antidepress Detected H U Methamphetamines Scrn Detected H U Benzodiazepines Scrn Detected H 08/30/19 08/30/19 04:41 05:16 RBC Hgb Hct MCV Lymphocytes # Lymphocytes # (Manual) Metamyelocytes # (Man) ABG pH ABG pCO2 46 H ABG pO2 321 H ABG HCO3 28 H ABG Total CO2 30 H ABG O2 Saturation 99.8 H Potassium 6.0 H BUN 38 H Glucose POC Glucose (mg/dL) Alkaline Phosphatase Urine Protein Urine WBC Amorphous Sediment Urine Bacteria Hyaline Casts Urine Mucus U Tricyclic Antidepress U Methamphetamines Scrn U Benzodiazepines Scrn - Diagnostic Findings Chest x-ray: image reviewed CT scan - chest: image reviewed Assessment and Plan Plan: 1 acute hypoxic/hypercapnic respiratory failure due to aspiration of foreign body/food material. Based on the CAT scan findings the foreign body is within the right mainstem bronchus. Currently the patient is intubated on a mechanical ventilator. He is oxygenating and ventilating adequately. 2 left pneumonectomy for non-small cell lung cancer 3 COPD 4 paranoid schizophrenia 5 hypothyroidism 6 hypertension 7 hyperlipidemia 8 hyperkalemia Plan Keep the patient sedated with propofol Continue vent support Dropped tidal volume 250 Will need a bronchoscopy for removal of foreign body. May need to exchange her tube as the patient is currently intubated and #7 orotracheal tube and this is to be replaced prior to the procedure to have adequate access to his airways via the orotracheal tube Address hyperkalemia and administer 2 Amp of sodium bicarb and D50 insulin regimen and repeat the potassium Case discussed with the family. Continue bronchodilators. Continue supportive care. Resume home medication and put the patient IV Zosyn as an empiric antibiotic coverage. We'll continue to follow.
[2019-08-30] MEDS ORDERED: IV FLUID CONTINUATION 1,000 ML IV ONE (09:21)
[2019-08-30] MEDS ORDERED: CISATRACURIUM 2 MG/ML 5 ML VIAL IV ONE (10:16)
[2019-08-30] MEDS: PIPERACILLIN-TAZOBACTAM 3.375 GM in SODIUM CHLORIDE 0.9% 100 ML IVPB SCH ×2 (10:17→18:21)
--- NOTE | 2019-08-30 10:22 | P.PCN ---
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 Multiple cauliflower-like polypoid lesions occupying the airway causing significant narrowing of the right upper lobe bronchus where the airway lumen has been out by around more than 50% and there is also some narrowing of the origin of the bronchus intermedius proximally. 2 aspiration of food material 3 left pneumonectomy Procedure(s) Performed: Flexible bronchoscopy, endobronchial biopsies of lung lesion Anesthesia: EDWINA Surgeon: Raul Souza Estimated Blood Loss (ml): 0 Pathology: other Condition: stable Disposition: ICU Operative Findings: This procedure was done and the intensive care unit. The patient was intubated by a #8 orotracheal tube. The flexible bronchoscope was introduced into the orotracheal tube and the procedure was done as the patient was being oxygenated and ventilated. The flexible bronchoscope was advanced into the lower check. The distal one third of the trachea was within normal limits. Examination of the left shoulder healthy stump with some limited amount of secretions and food material that was suctioned out. Then the bronchoscope was moved to the right. The right mainstem showed some small recommends of food material that was suctioned out. The suctioning was done without any major difficulties. Following that, airways fraction was completed. There was a significant abnormality in the distal right mainstem bronchus and the tricai between the right upper lobe and the bronchus intermedius. There was evidence of endobronchial tumor with a fungating polypoid like lesion occupying the orifice of the right upper lobe bronchus was noted by around 50%. I was able to proceed to bronchoscope the right upper lobe and visualized segments and was translocated given bronchoscope was moved back to the proximal intermedius and again fungating polypoid lesion was present on the lateral wall of the bronchus intermedius extending into the neck and the tricia. Endobronchial biopsies obtained. The orifice of the bronchus previous was narrowed by around 20%. The rest of the airways are patent. The bronchoscope was advanced to the distal bronchus intermedius and the right middle lobe and right lower lobe along to various segments were inspected. Rest of the airways are patent and there was no foreign bodies. After obtaining adequate endobronchial biopsies, the bronchoscope was removed and the procedure was terminated. No bedside complications. The patient currently is on a mechanical ventilator The patient remains sedated.
--- NOTE | 2019-08-30 10:24 | P.PCN ---
Date of Procedure: 08/30/19 Preoperative Diagnosis: Acute aspiration, respiratory failure Postoperative Diagnosis: Acute aspiration, respiratory failure Procedure(s) Performed: Intubation by #8 orotracheal tube Anesthesia: REGULO Surgeon: Raul Souza Estimated Blood Loss (ml): 0 Pathology: other Condition: stable Disposition: ICU Operative Findings: Indication: Respiratory compromise. A time-out was completed verifying correct patient, procedure, site, positioning, and implant(s) or special equipment if applicable. Note that the patient was intubated by a #7 orotracheal tube. The purpose of the procedure was to switch this patient to a larger size orotracheal tube to complete a flexible bronchoscopy. The patient was positioned appropriately and a #8 endotracheal tube was placed under direct laryngoscopy. The tube was anchored at 22 cm at the teeth. Correct placement was confirmed by presence of bilateral breath sounds without air sounds in the abdomen on auscultation. An end-tidal CO2 monitor was also used to confirm tracheal placement of the ET tube. A chest x-ray was ordered to assess for pneumothorax and verify endotracheal tube placement. The patient tolerated the procedure well and there were no complications.
[2019-08-30 13:28] VITALS: BMI 25.7
[2019-08-30 14:00] LABS: Glucose,Whole Blood 95 mg/dL (75-99)
[2019-08-30] MEDS ORDERED: IPRATROPIUM-ALBUTEROL 3 ML NEB INHALATION PRN (17:12)
[2019-08-30 18:26] LABS: Glucose,Whole Blood 85 mg/dL (75-99)
--- NOTE | 2019-08-30 18:35 | HP ---
HISTORY AND PHYSICAL DATE OF SERVICE: 08/30/2019 CHIEF COMPLAINT: Shortness of breath, HISTORY OF PRESENT ILLNESS: This 69-year-old gentleman with a past medical history of multiple medical problems including history of GERD, hypothyroidism, history of lung cancer and left pneumonectomy, paranoid schizophrenia, hypertension, hypothyroidism, hyperlipidemia, COPD, being followed by Dr. Bashir in the outpatient setting. The patient is living with family. Apparently according to the family, the patient has been going downhill slightly for the past several weeks because of the increasing need of psych medications, patient drowsy with some difficulty in walking also. Apparently the patient ate some hamburger helper and the patient subsequently choked and the family noted some wheezing. The patient also slightly unresponsive and EMS was called and the patient taken to [facility] ER and admitted for evaluation and treatment. The patient had prolonged coughing episode and after coming to the ER, the patient had respiratory distress. The patient mechanically intubated and admitted for further evaluation and treatment. The patient underwent bronchoscopy and aspiration of food material was performed by Dr. Souza. Dr. Souza also found a polypoid tumor in the distal main system of the bronchus also involving the tricia to the upper lobe and bronchus intermedius also. Multiple cauliflower-like polypoid lesions occupying the airway causing significant narrowing of the right upper lobe bronchus was also noted. The patient was mechanically intubated. Patient is sedated. The patient unable to give any coherent history. Most of the history taken from my discussion with staff and review of the chart and discussion with the family at the bedside. The patient is currently FULL CODE. PAST MEDICAL HISTORY: History of left lung cancer and pneumonectomy, history of GERD, history of hypothyroidism, history of paranoid schizophrenia, hyperlipidemia, COPD, history of anxiety, depression, schizophrenia. MEDICATIONS: Home medications are: 1. Trazodone 50 mg at bedtime. 2. Lopressor 25 mg p.o. daily. 3. Synthroid 50 mcg p.o. 4. Ativan 1 mg p.o. b.i.d. 5. Doxycycline 100 mg p.o. b.i.d. 6. Colace 100 mg p.o. b.i.d. 7. Depakene ER 500 mg q.h.s. 8. Ecotrin 81 mg p.o. daily. 9. Symmetrel 100 mg p.o. b.i.d. ALLERGIES: None. Family history, social history and review of systems could not be taken because of the patient's change in mental status and mechanical ventilation. FAMILY HISTORY: Myocardial infarction per chart and previous history of smoking per chart. PHYSICAL EXAM: Patient is mechanically ventilated and sedated. Pulse 84, blood pressure 108/70, respiration 18, temperature 98.4, pulse ox 100 percent on mechanical ventilation, 40% FiO2. Vent settings are noted. HEENT: Conjunctivae normal. Oral mucosa moist. NECK is no jugular venous distention. No carotid bruit. No lymph node enlargement. Cardiovascular system: S1, S2 muffled. No S3, no S4. RESPIRATION: Breath sounds diminished in the bases, bilateral scattered rhonchi and crackles. ABDOMEN: Soft, obese, nontender. No mass palpable. LEGS: No edema. No swelling. Nervous system: Patient is mechanically sedated. SKIN: No ulcers, no rashes and no bleeding. JOINTS: No active deforming arthropathy. LABS: WBC 8.2, hemoglobin 12.3, ABGs: 7.39, pCO2 46, PO2 is 321 on mechanical ventilation. Potassium is 6 and 5.2. Otherwise, sodium is 139, glucose is 214, and alkaline phosphatase 188. UA 72 hyaline casts, possible tricyclic antidepressant, methamphetamines, benzodiazepines. The chest CT is reviewed personally by me showed obstructive lesion in the right mainstem bronchus. Left pneumonectomy. CT scan of the brain showed cerebral atrophy. ASSESSMENT: 1. Acute hypoxic respiratory failure secondary to aspiration on mechanical ventilation. 2. Change in mental status, metabolic encephalopathy secondary to respiratory failure. 3. Possible right-sided lung cancer with possible recurrence. 4. History of left-sided lung cancer pneumonectomy. 5. Hyperkalemia. 6. Anemia. 7. Macrocytosis. 8. History of chest pain, angina. 9. History of gastroesophageal reflux disease. 10.Hypothyroidism. 11.History of paranoid schizophrenia. 12.Hypertension. 13.Hyperlipidemia. 14.History of anxiety, depression, schizophrenia. Paranoid schizophrenia. 15.Remote history of nicotine dependence. 16.FULL CODE. RECOMMENDATIONS AND DISCUSSION: This 69 -year-old gentleman who presented with multiple complex medical issues, we will monitor the patient closely, continue the current medications, management and symptomatic treatment. Otherwise, at this time, I recommend broad-spectrum IV antibiotics bronchodilators, mechanical ventilation per Dr. Souza. DVT prophylaxis. Resume the home medications. Patient's psych medications. Otherwise, case was discussed at length with the sister and at this time, we will continue to monitor along with Dr. Souza regarding extubation. Otherwise, regarding the further course of treatment, the family will weigh in the quality of life and different options and regarding the further diagnostic and prognostic evaluations and they will let us know, but however the prognosis currently is extremely guarded. Further recommendations to follow. A copy of this dictation being forwarded to Dr. Bashir who is the primary physician. MMODL / IJN: [id number] / MTDD
--- NOTE | 2019-08-30 20:39 | XR ---
EXAMINATION TYPE: XR chest 1V DATE OF EXAM: 08/30/2019 COMPARISON: Today at 5:00 AM HISTORY: Check tube placement TECHNIQUE: Single view FINDINGS: There is endotracheal tube with the tip 4.5 cm from the tricia. There is left-sided pneumon ectomy. Heart is shifted to the left side. Right lung is clear. No heart failure. There are chest arturo ds. There is nasogastric tube and the tip is overlying the gastric fundus of the gastroesophageal kennedy ction. IMPRESSION: Endotracheal tube in good position. NG tube probably in the gastric fundus.
[2019-08-30] MEDS: LORazepam 1 MG TAB PO SCH (20:48)
[2019-08-30] MEDS: METOPROLOL TARTRATE 25 MG TAB PO SCH (20:48)
[2019-08-30] MEDS: DOCUSATE 100 MG CAP PO SCH (20:48)
[2019-08-30] MEDS ORDERED: DIVALPROEX ER 500 MG TAB.ER.24H PO SCH (21:00)
[2019-08-30] MEDS: AMANTADINE HCL 100 MG CAP PO SCH (21:11)
[2019-08-30] MEDS: traZODone HCL 50 MG TAB PO SCH (21:11)
[2019-08-30] MEDS: IPRATROPIUM-ALBUTEROL 3 ML NEB INHALATION SCH (21:49)
[2019-08-30] MEDS: AMANTADINE HCL 100 MG/10 ML CUP PO SCH (22:28)
[2019-08-30] MEDS: VALPROIC ACID ORAL SOLN 250 MG/5 ML CUP PO SCH (22:29)
[2019-08-31] MEDS: PROPOFOL 1,000 MG in EMPTY BAG 1 BAG IV SCH ×2 (00:20→02:47)
[2019-08-31] MEDS: SODIUM CHLORIDE 0.9% 1,000 ML IV SCH ×3 (00:21→17:33)
[2019-08-31 00:47] LABS: Glucose,Whole Blood 101 mg/dL (75-99)
[2019-08-31] MEDS: PIPERACILLIN-TAZOBACTAM 3.375 GM in SODIUM CHLORIDE 0.9% 100 ML IVPB SCH ×3 (02:31→17:31)
--- NOTE | 2019-08-31 03:50 | CT ---
EXAMINATION TYPE: CT soft tissue neck wo con DATE OF EXAM: 08/31/2019 COMPARISON: None HISTORY: Possible left sided mass CT DLP: 261.4 mGycm Automated exposure control for dose reduction was used. Multiple axial sections were obtained from the top of the orbits to the aortic arch without contrast. There is left-sided pneumonectomy with the mediastinum shifted to the left side. There is endotrachea l tube. Thyroid gland is fairly symmetric. There is nasogastric tube. The submandibular salivary glan ds are symmetric. Mandible is intact. The parotid glands are symmetric. There is some fluid accumula tion in the posterior nasopharynx. Adenoids appear normal. Tonsils are not enlarged. I see no cervica l significant adenopathy. There are a few anterior triangle cervical lymph nodes that measure up to 7 mm. Cervical vertebra have normal alignment. There is spondylotic changes at C4-5 C5-6 with disc space na rrowing and spur formation. IMPRESSION: No discrete neck mass. Posterior nasopharyngeal fluid collection.
[2019-08-31 05:28] LABS: Basophils % (A) 1 %; Eosinophils # (A) 0.3 k/uL (0-0.7); Eosinophils % (A) 6 %; HCT 34.6 % (39.0-53.0); HGB 11.2 gm/dL (13.0-17.5); Lymphocytes # (A) 0.5 k/uL (1.0-4.8); Lymphocytes % (A) 10 %; MCH 32.8 pg (25.0-35.0); MCHC 32.4 g/dL (31.0-37.0); MCV 101.2 fL (80.0-100.0); Mean Platelet Volume 8.9; Monocytes # (A) 0.4 k/uL (0-1.0); Monocytes % (A) 8 %; Neutrophils # (A) 3.5 k/uL (1.3-7.7); Neutrophils % (A) 73 %; Platelet Count 158 k/uL (150-450); RBC 3.42 m/uL (4.30-5.90); RDW 12.8 % (11.5-15.5); WBC 4.9 k/uL (3.8-10.6)
[2019-08-31 05:29] LABS: ABG Base Excess 1.9 mmol/L; ABG HCO3 26 mmol/L (21-25); ABG Oxygen Saturation 99.2 % (94-97); ABG PCO2 40 mmHg (35-45); ABG PH 7.42 (7.35-7.45); ABG PO2 171 mmHg (83-108); ABG TCO2 28 mmol/L (19-24); Allen Test Performed? Yes
[2019-08-31 05:43] LABS: African American GFR (CKD) >90 (>60 ml/min/1.73 sqM); Anion Gap 5 mmol/L; Blood Urea Nitrogen 25 mg/dL (9-20); Calcium 8.7 mg/dL (8.4-10.2); Carbon Dioxide 23 mmol/L (22-30); Chloride 109 mmol/L (98-107); Glucose 85 mg/dL (74-99); Non-African American GFR(CKD) 82 (>60 ml/min/1.73 sqM); Potassium 4.1 mmol/L (3.5-5.1); Sodium 137 mmol/L (137-145)
[2019-08-31] MEDS: LEVOTHYROXINE 50 MCG TAB PO SCH (06:38)
[2019-08-31] MEDS: IPRATROPIUM-ALBUTEROL 3 ML NEB INHALATION SCH ×3 (07:23→20:27)
[2019-08-31] MEDS: LORazepam 1 MG TAB PO SCH ×2 (08:14→20:17)
[2019-08-31] MEDS: ASPIRIN 81 MG PO SCH (08:14)
[2019-08-31] MEDS: METOPROLOL TARTRATE 25 MG TAB PO SCH ×2 (08:14→20:17)
[2019-08-31] MEDS: FAMOTIDINE 20 MG/2 ML VIAL IV SCH ×2 (08:14→20:17)
[2019-08-31] MEDS: VALPROIC ACID ORAL SOLN 250 MG/5 ML CUP PO SCH ×2 (08:15→20:18)
[2019-08-31] MEDS: CHLORHEXIDINE GLUCONATE 15 ML CUP MUCOUS MEM SCH (08:15)
[2019-08-31] MEDS: DOCUSATE 100 MG CAP PO SCH (08:16)
[2019-08-31] MEDS: AMANTADINE HCL 100 MG/10 ML CUP PO SCH ×2 (10:04→20:18)
--- NOTE | 2019-08-31 10:54 | P.PN ---
Subjective Progress Note Date: 08/31/19 On today's evaluation of 08/31/2019 and seeing the patient for a follow-up. He is nicely sedated with propofol and is calm and comfortable. Propofol is running at 40 mics per kilograms per minute. As mentioned yesterday, the patient underwent a bronchoscopy. All of the foreign bodies were suctioned out. An endobronchial growth was also identified at was biopsied and was still awaiting the final pathology. Meanwhile, the patient is doing extremely well on a mechanical ventilator. His assist-control mode at the rate of 18 with tidal volume of 400 and FiO2 of 40% with a PEEP of 5. Blood gas showed a pH of 7.42 with a pCO2 of 40 and pO2 of 171 and this was done and FiO2 of 40%. Chest x-ray shows pneumonectomy on the left, adequate expansion of right lung with an adequate positioning of the ET tube and no evidence of any pulmonary infiltrates or pneumonias at this point in time. Of cover this patient with IV Zosyn. I've also cover this patient with DuoNeb nebulized treatments around the clock. No hemodynamic instability. No fever. No agitation. No other significant events overnight. The findings with a bronchoscopy was discussed with the Objective - Vital Signs Vital signs: Vital Signs Temp 97.6 F 08/31/19 08:00 Pulse 60 08/31/19 10:00 Resp 18 08/31/19 10:00 BP 107/67 08/31/19 10:00 Pulse Ox 98 08/31/19 10:00 Intake & Output 08/30/19 08/31/19 08/31/19 18:59 06:59 18:59 Intake Total 8055.122 0278.178 375 Output Total 640 635 115 Balance 3825.367 1397.178 260 Weight 68.039 kg 68.039 kg Intake: IV 1570 1575 375 Levofloxacin 750Mg-D5w 150 Pmx 750 mg In Dextrose/ Water 1 150ml.bag @ 100 mls/hr IVPB Q24H [facility] Rx#: [id number] Piperacillin-Tazobactam 3 100 75 .375 gm In Sodium Chloride 0.9% 100 ml @ 25 mls/hr IVPB Q8HR INA Rx# :[id number] Sodium Chloride 0.9% 1, 1295 1500 375 000 ml @ 125 mls/hr IV . Q8H INA Rx#:[id number] Intake, IV Titration 134.049 178.178 Amount Propofol 1,000 mg In 9.049 178.178 Empty Bag 1 bag @ Titrate IV .Q0M INA Rx#: [id number] Sodium Chloride 0.9% 1, 125 000 ml @ 125 mls/hr IV . Q8H INA Rx#:[id number] Output: Urine 640 635 115 Other: Voiding Method Indwelling Catheter Indwelling Catheter Indwelling Catheter - Exam Intubated on a mechanical ventilator, comfortable sedated Head exam was generally normal. There was no scleral icterus or corneal arcus. Mucous membranes were moist. Neck was supple and without jugular venous distension, thyromegaly, or carotid bruits. Carotids were easily palpable bilaterally. There was no adenopathy. Lung examination shows no breath sounds on the left, diminished breath sounds in the right. Orotracheal tube is in place. No significant wheezes or rhonchi on the right. Cardiac exam revealed the PMI to be normally situated and sized. The rhythm was regular and no extrasystoles were noted during several minutes of auscultation. The first and second heart sounds were normal and physiologic splitting of the second heart sound was noted. There were no murmurs, rubs, clicks, or gallops. Abdominal exam revealed normal bowel sounds. The abdomen was soft, non-tender, and without masses, organomegaly, or appreciable enlargement of the abdominal aorta. Examination of the extremities revealed easily palpable radial, femoral and pedal pulses. There was no cyanosis, clubbing or edema. Examination of the skin revealed no evidence of significant rashes, suspicious appearing nevi or other concerning lesions. Neurologic the patient is sedated Psychiatric negative history of schizophrenia and there is no ability to do a psych evaluation at this point in time. - Labs CBC & Chem 7: 08/31/19 00:57 08/31/19 04:54 Labs: Abnormal Lab Results - Last 24 Hours (Table) 08/31/19 08/31/19 08/31/19 Range/Units 00:45 00:57 04:54 RBC 3.42 L (4.30-5.90) m/uL Hgb 11.2 L (13.0-17.5) gm/dL Hct 34.6 L (39.0-53.0) % MCV 101.2 H (80.0-100.0) fL Lymphocytes # 0.5 L (1.0-4.8) k/uL ABG pO2 (83-108) mmHg ABG HCO3 (21-25) mmol/L ABG Total CO2 (19-24) mmol/L ABG O2 Saturation (94-97) % Chloride 109 H (98-107) mmol/L BUN 25 H (9-20) mg/dL POC Glucose (mg/dL) 101 H (75-99) mg/dL 08/31/19 Range/Units 05:25 RBC (4.30-5.90) m/uL Hgb (13.0-17.5) gm/dL Hct (39.0-53.0) % MCV (80.0-100.0) fL Lymphocytes # (1.0-4.8) k/uL ABG pO2 171 H (83-108) mmHg ABG HCO3 26 H (21-25) mmol/L ABG Total CO2 28 H (19-24) mmol/L ABG O2 Saturation 99.2 H (94-97) % Chloride (98-107) mmol/L BUN (9-20) mg/dL POC Glucose (mg/dL) (75-99) mg/dL Microbiology - Last 24 Hours (Table) 08/29/19 22:30 Gram Stain - Preliminary Sputum Sputum Culture - Preliminary Assessment and Plan Plan: 1 acute hypoxic/hypercapnic respiratory failure due to aspiration of foreign body/food material. Based on the CAT scan findings the foreign body is within the right mainstem bronchus. Currently the patient is intubated on a mechanical ventilator. He is oxygenating and ventilating adequately. Bronchoscopy was done and the foreign bodies were suctioned out. There was endobronchial growth at the level of the tricia the to the right upper lobe and the bronchus intermedius. The right upper lobe bronchus was narrowed by around 50%. There was some narrowing of the origin of the right mainstem bronchus probably in the order of 20%. Endobronchial biopsies were obtained. The patient remains intubated on a mechanical ventilator. 2 left pneumonectomy for non-small cell lung cancer 3 COPD 4 paranoid schizophrenia 5 hypothyroidism 6 hypertension 7 hyperlipidemia 8 hyperkalemia, improved Plan Stop sedation Check weaning parameters Spontaneous breathing trial Assess candidacy for weaning IV Zosyn. Endobronchial biopsies were done and the tube exchanger was done with the patient was intubated by a #8 orotracheal tube. The patient is on normal saline infusion at the rate of 125 mL an hour. We'll cut down the IV fluids to 50 mL an hour. Possible extubation today Family was updated Resume segment medications We'll continue to follow Evaluation was done and morning 30 minutes, critically care evaluation
[2019-08-31 12:11] LABS: Glucose,Whole Blood 85 mg/dL (75-99)
[2019-08-31] MEDS ORDERED: LORazepam 2 MG/ML INJ IV STA (19:30)
--- NOTE | 2019-08-31 20:07 | PN ---
PROGRESS NOTE DATE OF SERVICE: 08/31/2019 This 69-year-old gentleman admitted with acute hypoxic respiratory failure, had change in mental status also. The patient also had right-sided lung cancer and right- sided fluid aspiration, possibly. The patient was mechanically ventilated. The patient extubated. Patient is much more alert at this time. Biopsy result of the lesions seen by seen by Dr. Souza during the bronchoscopy is pending at this time. Soft tissue neck also showed no discrete neck mass, posterior neck swelling and fluid collection was noted. Patient being closely monitored at this time. PAST MEDICAL HISTORY: Reviewed. REVIEW OF SYSTEMS: ENT as mentioned earlier. CARDIOVASCULAR as mentioned earlier. RESPIRATORY: As mentioned earlier. GI no nausea or vomiting. no dysuria or hematuria. Nervous systems: No numbness or weakness. CURRENT MEDICATIONS: Current medications are noted and include: 1. Tylenol p.r.n. 2. DuoNeb q.i.d. and p.r.n. 3. Symmetrel. 4. Aspirin. 5. Peridex. 6. Colace. 7. Pepcid. 8. Synthroid. 9. Lopressor. 10.Zosyn IV. 11.Desyrel. 12.Depakene. 13.Doses are reviewed. PHYSICAL EXAM: Patient is alert, oriented x3. Pulse is 79. Blood pressure 131/73, respiration 20, temperature 97.7, pulse ox 100 percent on 4 L. HEENT is conjunctivae normal. NECK: No JVD. CARDIOVASCULAR: S1, S2 muffled. RESPIRATIONS: Breath sounds diminished in the bases. Bilateral scattered rhonchi and expiratory wheezing also present. ABDOMEN: Soft. Nontender. LEGS are no edema. No swelling. CENTRAL NERVOUS SYSTEM: No focal deficits. LABS: WBC 4.1, hemoglobin 11.2, ABGs noted. Sodium 139, potassium 4.1. ASSESSMENT: 1. Acute hypoxic respiratory failure secondary to pneumonia and aspiration of fluid. Status post mechanical ventilation. 2. Change in mental status, acute metabolic acidosis secondary to acute respiratory hypoxic respiratory failure. 3. Possible right-sided lung cancer with possible recurrence, status post bronchoscopy. 4. History of left-sided lung cancer and pneumonectomy. 5. Hyperkalemia. 6. Anemia. 7. Macrocytosis. 8. History of chest pain, angina. 9. History of gastroesophageal reflux disease. 10.Hypothyroidism. 11.History of paranoid schizophrenia. 12.Hypertension. 13.Hyperlipidemia. 14.History of anxiety/depression, schizophrenia. 15.Remote history of nicotine dependence. 16.FULL CODE. RECOMMENDATIONS AND DISCUSSION: Recommend to continue current medications, management and symptomatic treatment. At this time, continue the bronchodilators. Continue with empiric antibiotics. Patient is on IV Zosyn at this time. Cultures are reviewed. Otherwise, biopsy is also pending at this time. Closely follow with Dr. Souza and Hematology/Oncology. Guarded prognosis. Further recommendations to follow. MMODL / IJN: [id number] / JHONSON
[2019-08-31] MEDS: traZODone HCL 50 MG TAB PO SCH (20:17)
[2019-09-01] MEDS: PIPERACILLIN-TAZOBACTAM 3.375 GM in SODIUM CHLORIDE 0.9% 100 ML IVPB SCH ×3 (01:16→17:39)
[2019-09-01] MEDS: CHLORHEXIDINE GLUCONATE 15 ML CUP MUCOUS MEM SCH ×2 (01:19→10:28)
[2019-09-01] MEDS: DOCUSATE 100 MG CAP PO SCH ×3 (01:19→21:46)
[2019-09-01] MEDS ORDERED: LORazepam 2 MG/ML INJ IV STA (02:01)
[2019-09-01 04:40] LABS: Basophils # (A) 0.1 k/uL (0-0.2); Basophils % (A) 1 %; Eosinophils # (A) 0.3 k/uL (0-0.7); Eosinophils % (A) 7 %; HCT 34.6 % (39.0-53.0); HGB 11.3 gm/dL (13.0-17.5); Lymphocytes # (A) 0.5 k/uL (1.0-4.8); Lymphocytes % (A) 11 %; MCH 32.7 pg (25.0-35.0); MCHC 32.7 g/dL (31.0-37.0); MCV 99.9 fL (80.0-100.0); Mean Platelet Volume 8.5; Monocytes # (A) 0.4 k/uL (0-1.0); Monocytes % (A) 9 %; Neutrophils # (A) 3.2 k/uL (1.3-7.7); Neutrophils % (A) 69 %; Platelet Count 146 k/uL (150-450); RBC 3.46 m/uL (4.30-5.90); RDW 12.6 % (11.5-15.5); WBC 4.6 k/uL (3.8-10.6)
[2019-09-01 04:49] LABS: African American GFR (CKD) >90 (>60 ml/min/1.73 sqM); Anion Gap 4 mmol/L; Blood Urea Nitrogen 15 mg/dL (9-20); Calcium 8.9 mg/dL (8.4-10.2); Carbon Dioxide 27 mmol/L (22-30); Chloride 109 mmol/L (98-107); Glucose 87 mg/dL (74-99); Non-African American GFR(CKD) 78 (>60 ml/min/1.73 sqM); Potassium 3.9 mmol/L (3.5-5.1); Sodium 140 mmol/L (137-145)
[2019-09-01] MEDS: IPRATROPIUM-ALBUTEROL 3 ML NEB INHALATION SCH ×3 (07:33→21:32)
--- NOTE | 2019-09-01 08:28 | XR ---
EXAMINATION TYPE: XR chest 1V portable DATE OF EXAM: 09/01/2019 COMPARISON: Prior chest x-ray 08/30/2019, CT 08/31/2019, 08/29/2019 HISTORY: Extubated, abnormal chest x-ray TECHNIQUE: Single frontal view of the chest is obtained. FINDINGS: Endotracheal and NG tubes have been removed. Postpneumonectomy changes persist on the left , there is compensatory emphysema of the right lung. No evident pneumothorax or right pleural effusio n. Heart is obscured due to volume loss in left hemithorax. Strand-like densities in the right lung m ay reflect atelectasis or scarring. Right upper lobe lung nodule is obscured. IMPRESSION: Postop changes. Right upper lobe lung nodule seen on prior CTs are not well seen on plai n film, follow-up recommended.
[2019-09-01] MEDS: LORazepam 1 MG TAB PO SCH ×2 (10:26→21:46)
[2019-09-01] MEDS: METOPROLOL TARTRATE 25 MG TAB PO SCH ×2 (10:26→21:46)
[2019-09-01] MEDS: FAMOTIDINE 20 MG/2 ML VIAL IV SCH (10:27)
--- NOTE | 2019-09-01 10:27 | P.PN ---
Subjective Progress Note Date: 09/01/19 On 09/01/2019, I'm seeing this patient for a follow-up. The patient was weaned off the mechanical ventilator and the patient was extubated blood any major difficulties. Currently is on room air oxygen. Breath sounds are diminished at the present on the right. No cough. No sputum production. No hemoptysis. Awaiting the final path on the endobronchial biopsies this was done from the right lung. Meanwhile, the patient was supposed to undergo a swallow evaluation he denied doing the evaluation as he was not being fully cooperative. Psychiatric seeing the patient for now. He was able to take some applesauce yesterday. No aspiration has been noted. No chest pain. No altered mentation. Is a chronic psych patient and the patient will be seen by Dr. Verduzco. Hemodynamically stable. No other significant events overnight. Objective - Vital Signs Vital signs: Vital Signs Temp 98 F 09/01/19 08:00 Pulse 84 09/01/19 10:00 Resp 21 09/01/19 10:00 BP 163/95 09/01/19 10:00 Pulse Ox 95 09/01/19 10:00 Intake & Output 08/31/19 09/01/19 09/01/19 18:59 06:59 18:59 Intake Total 1075 650 200 Output Total 835 1480 660 Balance 240 -830 -460 Intake: IV 975 550 200 Sodium Chloride 0.9% 1, 975 550 200 000 ml @ 50 mls/hr IV . Q20H INA Rx#:[id number] Intake, IV Titration 100 100 Amount Piperacillin-Tazobactam 3 100 .375 gm In Sodium Chloride 0.9% 100 ml @ 25 mls/hr IVPB Q8H INA Rx#: [id number] Propofol 1,000 mg In 100 Empty Bag 1 bag @ Titrate IV .Q0M INA Rx#: [id number] Output: Urine 835 1480 660 Other: Voiding Method Indwelling Catheter Indwelling Catheter Indwelling Catheter # Bowel Movements 2 - Exam Gen. appearance, comfortable no acute distress. Currently on room air oxygen. Head exam was generally normal. There was no scleral icterus or corneal arcus. Mucous membranes were moist. Neck was supple and without jugular venous distension, thyromegaly, or carotid bruits. Carotids were easily palpable bilaterally. There was no adenopathy. Lung examination shows no breath sounds on the left, diminished breath sounds in the right. Cardiac exam revealed the PMI to be normally situated and sized. The rhythm was regular and no extrasystoles were noted during several minutes of auscultation. The first and second heart sounds were normal and physiologic splitting of the second heart sound was noted. There were no murmurs, rubs, clicks, or gallops. Abdominal exam revealed normal bowel sounds. The abdomen was soft, non-tender, and without masses, organomegaly, or appreciable enlargement of the abdominal aorta. Examination of the extremities revealed easily palpable radial, femoral and pedal pulses. There was no cyanosis, clubbing or edema. Examination of the skin revealed no evidence of significant rashes, suspicious appearing nevi or other concerning lesions. Neurologic the patient is OAx3 Psychiatric negative history of schizophrenia - Labs CBC & Chem 7: 09/01/19 04:02 09/01/19 04:02 Labs: Abnormal Lab Results - Last 24 Hours (Table) 09/01/19 09/01/19 Range/Units 04:02 04:02 RBC 3.46 L (4.30-5.90) m/uL Hgb 11.3 L (13.0-17.5) gm/dL Hct 34.6 L (39.0-53.0) % Plt Count 146 L (150-450) k/uL Lymphocytes # 0.5 L (1.0-4.8) k/uL Chloride 109 H (98-107) mmol/L Assessment and Plan Plan: 1 acute hypoxic/hypercapnic respiratory failure due to aspiration of foreign body/food material. The patient was also found to have some endobronchial tumor in the proximal bronchus intermedius and the distal right mainstem bronchus and the tricia the right upper lobe and the bronchus medius. Endobronchial biopsies obtained. Pathologist and pending for now.. Meanwhile, the patient was weaned off the mechanical ventilator patient was extubated and currently the patient is on room air oxygen. IV Zosyn for aspiration. 2 left pneumonectomy for non-small cell lung cancer 3 COPD 4 paranoid schizophrenia 5 hypothyroidism 6 hypertension 7 hyperlipidemia 8 hyperkalemia, improved Plan Currently on room air oxygen. IV Zosyn for aspiration. Chest x-ray from today shows acute right lung. Will need a swallow evaluation Endobronchial biopsies were done and the tube exchanger was done with the patient was intubated by a #8 orotracheal tube. IV fluids to 50 mL an hour. Psychiatric we will be evaluating this patient. Family was updated We'll continue to follow I think the patient can be transferred to a medical floor today to be followed up by psychiatry. Awaiting the results of the biopsies obtained from the right lung.
[2019-09-01] MEDS: AMANTADINE HCL 100 MG/10 ML CUP PO SCH ×2 (10:29→21:47)
[2019-09-01] MEDS: ASPIRIN 81 MG PO SCH (10:29)
[2019-09-01] MEDS: VALPROIC ACID ORAL SOLN 250 MG/5 ML CUP PO SCH ×2 (10:29→21:46)
[2019-09-01] MEDS: LEVOTHYROXINE 50 MCG TAB PO SCH (10:32)
[2019-09-01] MEDS: QUEtiapine 100 MG TAB PO SCH ×2 (11:27→21:46)
[2019-09-01 12:03] LABS: Glucose,Whole Blood 99 mg/dL (75-99)
[2019-09-01] MEDS: SODIUM CHLORIDE 0.9% 1,000 ML IV SCH (17:39)
[2019-09-01] MEDS: AMANTADINE HCL 100 MG CAP PO SCH (18:30)
--- NOTE | 2019-09-01 20:27 | P.CONS ---
History of Present Illness - Reason for Consult Consult date: 09/01/19 lung mass Requesting physician: Lana Lindsey - Chief Complaint resp failure, choking - History of Present Illness Mr. Ramos is a very pleasant male pt with his sister being his caregiver as he suffers from schizophrenia and has difficult with reporting his symptoms or recalling his history. SHe states pt is pretty anxious this AM. He denies nausea, JENNIFER or pain. Sister reports poor appetite, mostly from fears of having to get up and use the bathroom, he has lost weight, has not noticed increased cough, hemoptysis, sweats, or other acute changes in his health recently, no c/o ANDERSON or new neurological symptoms. He was treated for lung cancer 10-15 years ago with surgery only by Dr. Dorado. Review of Systems much of Hx obtained from sister/caregiver at bedside ROS unobtainable: due to mental status Past Medical History Past Medical History: Cancer, Chest Pain / Angina, GERD/Reflux, Thyroid Disorder Additional Past Medical History / Comment(s): hx lung cancer mom previous pneumonectomy, paranoid schizophrenia, hypertension, hypothyroidism and hyperlipidemia and COPD History of Any Multi-Drug Resistant Organisms: None Reported Past Surgical History: Tonsillectomy Additional Past Surgical History / Comment(s): Complete left pneumonectomy Past Anesthesia/Blood Transfusion Reactions: No Reported Reaction Past Psychological History: Anxiety, Depression, Schizophrenia Additional Psychological History / Comment(s): paranoid schizophrenia Smoking Status: Former smoker Past Alcohol Use History: None Reported Past Drug Use History: None Reported - Past Family History Mother Family Medical History: Myocardial Infarction (OR) Medications and Allergies Home Medications Medication Instructions Recorded Confirmed Type Amantadine HCl [Symmetrel] 100 mg PO BID 12/10/14 08/30/19 History LORazepam [Ativan] 1 mg PO BID 12/10/14 08/30/19 History Docusate [Colace] 100 mg PO BID 11/30/15 08/30/19 History Metoprolol Tartrate [Lopressor] 25 mg PO BID 11/30/15 08/30/19 History Aspirin EC [Ecotrin Low Dose] 81 mg PO DAILY 08/30/19 08/30/19 History Divalproex ER [Depakote ER] 500 mg PO HS 08/30/19 08/30/19 History Doxycycline Hyclate 100 mg PO BID 08/30/19 08/30/19 History Levothyroxine Sodium [Synthroid] 50 mcg PO DAILY 08/30/19 08/30/19 History traZODone HCL 50 mg PO HS 08/30/19 08/30/19 History Allergies Allergy/AdvReac Type Severity Reaction Status Date / Time No Known Allergies Allergy Verified 08/30/19 14:10 Physical Exam Vitals: Vital Signs Temp Pulse Resp BP Pulse Ox 09/01/19 10:00 84 21 163/95 95 09/01/19 09:00 90 20 150/83 93 L 09/01/19 08:00 98 F 86 24 141/97 92 L 09/01/19 07:00 116 H 10 L 156/87 93 L 09/01/19 06:00 89 19 154/84 96 09/01/19 05:00 79 20 150/79 97 09/01/19 04:00 97.8 F 81 14 148/77 96 09/01/19 03:00 81 14 176/87 95 09/01/19 02:00 73 18 146/76 97 09/01/19 01:00 77 22 145/81 97 09/01/19 00:00 98.1 F 78 23 156/82 98 08/31/19 23:00 85 21 157/83 98 08/31/19 22:00 83 28 H 155/81 99 08/31/19 21:00 90 22 141/75 99 08/31/19 20:39 96 08/31/19 20:27 91 08/31/19 20:00 98.2 F 87 20 151/79 96 08/31/19 19:00 84 10 L 120/81 99 08/31/19 18:00 80 24 146/76 99 08/31/19 17:00 85 12 146/71 99 08/31/19 16:00 97.7 F 79 21 131/73 100 08/31/19 15:00 78 11 L 142/83 99 08/31/19 14:00 70 13 147/78 100 08/31/19 13:09 65 08/31/19 13:00 59 L 20 141/72 99 08/31/19 12:00 97.8 F 65 13 148/81 98 08/31/19 11:00 59 L 18 127/75 99 Intake and Output 08/31/19 09/01/19 09/01/19 22:59 06:59 14:59 Intake Total 400 450 200 Output Total 725 1150 660 Balance -325 -700 -460 Intake: IV 400 350 200 Sodium Chloride 0.9% 1, 400 350 200 000 ml @ 50 mls/hr IV . Q20H REPLACED BY [facility] Rx#:[id number] Intake, IV Titration 100 Amount Piperacillin-Tazobactam 3 100 .375 gm In Sodium Chloride 0.9% 100 ml @ 25 mls/hr IVPB Q8H REPLACED BY [facility] Rx#: [id number] Output: Urine 725 1150 660 Other: Voiding Method Indwelling Catheter Indwelling Catheter Indwelling Catheter # Bowel Movements 2 - Constitutional General appearance: cooperative, no acute distress, thin - EENT Eyes: anicteric sclerae, EOMI, poor dentition ENT: hearing grossly normal, normal oropharynx - Neck Neck: no lymphadenopathy - Respiratory Respiratory: right: CTA, diminished, left: dullness - Cardiovascular Rhythm: regular Heart sounds: normal: S1, S2 Abnormal Heart Sounds: no systolic murmur, no diastolic murmur, no rub, no S3 Gallop, no S4 Gallop, no click, no other leg Peripheral Edema: bilateral: Trace - Gastrointestinal General gastrointestinal: no absent bowel sounds, no decreased bowel sounds, no distended, no hepatomegaly, no hyperactive bowel sounds, normal bowel sounds, no organomegaly, no rigid, no scaphoid, soft, no splenomegaly, no tenderness, no umbilical hernia, no ventral hernia - Integumentary Integumentary: pale - Neurologic Neurologic: CNII-XII intact - Musculoskeletal Musculoskeletal: generalized weakness, strength equal bilaterally - Psychiatric Psychiatric: A&O x's 3, appropriate affect, no intact judgment & insight Results CBC & Chem 7: 09/01/19 04:02 09/01/19 04:02 Labs: Abnormal Lab Results - Last 24 Hours (Table) 09/01/19 09/01/19 Range/Units 04:02 04:02 RBC 3.46 L (4.30-5.90) m/uL Hgb 11.3 L (13.0-17.5) gm/dL Hct 34.6 L (39.0-53.0) % Plt Count 146 L (150-450) k/uL Lymphocytes # 0.5 L (1.0-4.8) k/uL Chloride 109 H (98-107) mmol/L Comments: procedure notes reviewed Chest x-ray: report reviewed CT scan - chest: report reviewed CT Scan - head: report reviewed Assessment and Plan (1) History of lung cancer Narrative/Plan: Discussed with pt sister/health care liaison only per her request. Pending biopsy results. Previous cancer treated with surgery >10 years ago, most likely this is a new primary but, could be a recurrence. With previous pneumonectomy surgery is not an option for treatment even if early stage. Radiation could be curative if not metastatic and small enough field. If metastatic, chemo/immuno systemic therapy is the treatment option. MRI brain for staging-deferred per family request for now Current Visit: Yes Status: Chronic Priority: High Code(s): Z85.118 - PERSONAL HISTORY OF MALIGNANT NEOPLASM OF BRONCHUS AND LUNG SNOMED Code(s): 970271843 Plan: Attests: I have performed history and physical examination of pt and developed impression and plan of care. Discussed with dictator. I agree with dictator's note, documented as a scribe.
[2019-09-01 20:45] LABS: Glucose,Whole Blood 84 mg/dL (75-99)
[2019-09-01] MEDS: FAMOTIDINE 20 MG TAB PO SCH (21:46)
[2019-09-01] MEDS: traZODone HCL 50 MG TAB PO SCH (21:46)
--- NOTE | 2019-09-01 23:31 | PN ---
PROGRESS NOTE DATE OF SERVICE: 09/01/2019 This 69-year-old gentleman who was admitted with acute respiratory failure also had aspiration of food through the right trachea. The patient had bronchoscopy and food was aspirated back, but multiple lesions were noted, verrucous in shape. 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 The patient is much more alert extubated. Patient has significant shadowing on the left in the chest x-ray, indicating previous pneumonectomy. Past medical history reviewed. REVIEW OF SYSTEMS: The patient is still confused slightly. CURRENT MEDICATIONS: Current medications include: 1. Tylenol suppository. 2. DuoNeb q.i.d. and p.r.n. 3. Symmetrel (amantadine) 100 mg p.o. b.i.d. 4. Aspirin 81 mg daily. 5. Colace 100 mg p.o. b.i.d. 6. Pepcid 20 mg b.i.d. 7. Synthroid. 8. Ativan. 9. Lopressor 25 mg p.o. b.i.d. 10.Magnesium oxide. 11.Narcan. 12.Zosyn 3.375 IV q.8. 13.Desyrel 50 mg at bedtime. 14.Depakene. PHYSICAL EXAMINATION: Patient is alert and oriented x2. Pulse 70, blood pressure 144/73, respiration 19, temperature 97.9, pulse ox 94% on room air. HEENT: Conjunctivae normal. NECK: No jugular venous distention. CARDIOVASCULAR SYSTEM: S1, S2 muffled. RESPIRATORY SYSTEM: Breath sounds diminished at the bases. A few scattered rhonchi and crackles. ABDOMEN: Soft, non-tender. LEGS: No edema. No swelling. NERVOUS SYSTEM: No focal deficit. LABS: WBC 4.6, hemoglobin 11.3, platelets 146. Sodium 140, potassium 3.9. ASSESSMENT: 1. Acute hypoxic respiratory failure secondary to pneumonia and aspiration of food, status post mechanical ventilation. 2. Possible right lung squamous cell carcinoma, right main bronchus recurrence. 3. Change in mental status and acute metabolic encephalopathy, multifactorial. 4. Acute metabolic acidosis. 5. History of left lung cancer and left lung pneumonectomy. 6. Hyperkalemia. 7. Anemia. 8. Macrocytosis. 9. History of chest pain, angina. 10.History of gastroesophageal reflux disease. 11.Hypothyroidism. 12.History of paranoid schizophrenia. 13.Hypertension. 14.Hyperlipidemia. 15.History of anxiety, depression, schizophrenia. 16.Remote history of nicotine dependence. 17.FULL CODE. RECOMMENDATIONS AND DISCUSSION: I recommend to continue current medications, continue with the monitoring, symptomatic treatment. Biopsy reports are noted at this time. Continue the antibiotics, bronchodilators. Otherwise, I would recommend hematology/oncology evaluation. Guarded prognosis because of multiple complex medical issues. Further recommendations to follow. MMODL / IJN: [id number] / JOHNSON
[2019-09-02] MEDS: PIPERACILLIN-TAZOBACTAM 3.375 GM in SODIUM CHLORIDE 0.9% 100 ML IVPB SCH ×3 (03:01→17:18)
[2019-09-02] MEDS: LEVOTHYROXINE 50 MCG TAB PO SCH (05:53)
[2019-09-02 07:40] LABS: Glucose,Whole Blood 82 mg/dL (75-99)
[2019-09-02] MEDS: IPRATROPIUM-ALBUTEROL 3 ML NEB INHALATION SCH ×3 (08:41→19:30)
[2019-09-02] MEDS: FAMOTIDINE 20 MG TAB PO SCH ×2 (08:54→21:01)
[2019-09-02] MEDS: DOCUSATE 100 MG CAP PO SCH ×2 (08:54→21:01)
[2019-09-02] MEDS: ASPIRIN 81 MG PO SCH (08:54)
[2019-09-02] MEDS: LORazepam 1 MG TAB PO SCH ×2 (08:54→21:01)
[2019-09-02] MEDS: METOPROLOL TARTRATE 25 MG TAB PO SCH ×2 (08:54→21:01)
[2019-09-02] MEDS: SODIUM CHLORIDE 0.9% 1,000 ML IV SCH (08:55)
[2019-09-02] MEDS: QUEtiapine 100 MG TAB PO SCH ×2 (08:56→21:00)
[2019-09-02] MEDS: VALPROIC ACID ORAL SOLN 250 MG/5 ML CUP PO SCH ×2 (08:57→21:02)
[2019-09-02] MEDS: AMANTADINE HCL 100 MG/10 ML CUP PO SCH ×2 (08:58→21:01)
[2019-09-02] MEDS ORDERED: LORazepam 2 MG/ML INJ IV STA (10:40)
[2019-09-02 11:44] LABS: Glucose,Whole Blood 102 mg/dL (75-99)
--- NOTE | 2019-09-02 13:18 | P.CN ---
Psychiatric Consult - . Consult date: 09/02/19 Consult:: IDENTIFYING DATA: The patient is a 69-year-old male admitted to medicine service following a gradual decline in functioning and episode of choking. The hospitalist consult to psychiatry because the patient has a history of a schizophrenia. HISTORY OF PRESENT ILLNESS: I reviewed the medical record, interviewed the patient and spoke with his sister. Most information was provided by his sister Neva. His primary complaint was weakness and difficulty swallowing. His sister reported that he been diagnosed with schizophrenia while was in the and [facility] including Thorazine and Navane. Over the last several years the schizophrenia was managed by Dr. Verduzco with a combination of Depakote and Seroquel. Despite the schizophrenia he was was , had 2 children and maintained gainful employment, The only psychotic symptoms he identified were visual disturbances. He describes seeing "why" lines and other figures on the wall. I was uncertain whether this was a visual hallucination. He denied experiencing auditory or olfactory hallucinations, ideas reference, thought insertion, thought broadcasting or thought control. He denied feeling frightened or suspicious. PAST PSYCHIATRIC HISTORY: As above. PAST MEDICAL HISTORY: He has a history of lung cancer and underwent left pneumonectomy. Recent Bronchoscopy identified a endobronchial growth suggestive of a recurrence of cancer. ALLERGIES: NO KNOWN DRUG ALLERGIES. SUBSTANCE USE HISTORY: Denied. FAMILY PSYCHIATRIC/SUBSTANCE USE HISTORY: He denied a family history of mental health or substance use problems. SOCIAL HISTORY: His born and raised in intact family. He graduated from high school. He served in the where he was first diagnosed with schizophrenia and received a honorable under medical condition discharge. He is and has 2 children. He is retired from [employer]. He lives with his sister. MENTAL STATUS EXAM: He presented as a thin casually groomed 69-year-old male who was sitting comfortably in a recliner. He made eye contact and appeared to attend to the interview. He had no distinction features are prominent physical abnormalities. He had a blunted but bright facial expression. He was alert and oriented to person, place and time. Showed psychomotor retardation but no abnormal movements. I did not evaluate his gait. Her speech was spontaneous with decreased rate and volume. His affect was blunted but stable and appropriate. He denied suicidal ideation, wishes or homicidal ideation. He did not express feelings of hopelessness, helplessness or worthlessness. He did not express clear ideas reference, paranoid ideation or delusions. His sleep was concrete but his associations were coherent and logical. He denied auditory hallucinations but described visual hallucinatory experiences. . IMPRESSIONS: He is a 69-year-old male admitted to medicine service for the evaluation and treatment of choking. He has a history of schizophrenia diagnosed as I talked and [facility] by private psychiatrist. He described but may be visual hallucinations but denied other positive psychotic symptoms. The predominant issues are related to to his medical problems. PLAN: There is no indication for transfer to the psychiatric unit. Continue Seroquel 3 mg by mouth twice a day, Ativan 1 mg by mouth twice a day, amantadine 100 mg twice a day and Desyrel 50 mg by mouth daily at bedtime. Change the Depakene syrup (200 mg by mouth twice a day) back to his outpatient dose of Depakote ER 500 mg at bedtime. We'll follow.. 09/02/19 10:37 09/02/19 13:08
--- NOTE | 2019-09-02 14:17 | P.PN ---
Subjective Progress Note Date: 09/02/19 Principal diagnosis: Sq cell NSCLC In follow-up today patient has multiple family members at the bedside, patient is sitting in the chair, he denies any pain, difficulty breathing, nausea to go to the bathroom. Objective - Vital Signs Vital signs: Vital Signs Temp 97.4 F L 09/02/19 12:14 Pulse 94 09/02/19 13:36 Resp 16 09/02/19 12:14 BP 166/87 09/02/19 12:14 Pulse Ox 96 09/02/19 12:14 Intake & Output 09/01/19 09/02/19 09/02/19 18:59 06:59 18:59 Intake Total 400 500 Output Total 1160 Balance -760 500 Weight 68 kg Intake: IV 400 400 Sodium Chloride 0.9% 1, 400 400 000 ml @ 50 mls/hr IV . Q20H [facility] Rx#:[id number] Intake, IV Titration 100 Amount Piperacillin-Tazobactam 3 100 .375 gm In Sodium Chloride 0.9% 100 ml @ 25 mls/hr IVPB Q8H [facility] Rx#: [id number] Output: Urine 1160 Other: Voiding Method Indwelling Catheter Urinal Urinal Diaper Diaper Incontinent Incontinent # Voids 1 # Bowel Movements 2 - Exam Patient is laying back in chair, cephalic, atraumatic, anicteric sclera, respirations are easy and unlabored, he is alert he is oriented to self and place, he is very calm, skin is warm and dry to the touch, no swelling in the legs is noted. - Labs CBC & Chem 7: 09/01/19 04:02 09/01/19 04:02 Labs: Abnormal Lab Results - Last 24 Hours (Table) 09/02/19 Range/Units 11:28 POC Glucose (mg/dL) 102 H (75-99) mg/dL Microbiology - Last 24 Hours (Table) 08/29/19 22:30 Gram Stain - Final Sputum Sputum Culture - Final Assessment and Plan (1) Squamous cell carcinoma lung Narrative/Plan: reviewed the pathology results with family members and patient. Unfortunately, we do not know the cell type of patient's previous malignancy but, based on the timing of greater than 10 years, most likely this is a new primary. Explained that staging needs to be completed as that impacts prognosis, treatment options as well as next generation sequencing. Prognosis will certainly be improved if he is not metastatic. If he is not metastatic literature/research shows that radiation can be nearly as effective as surgical removal for some people. If patient is metastatic radiation would only be reserved for palliation of symptoms and the main treatment would consist of systemic chemotherapy/immunotherapy. If patient is metastatic somatic tumor testing would be requested for biomarker presence. MRI of the brain and PET scan will complete staging workup. Family is willing now to move forward with the MRI. This will be ordered. Family requested a dose of anti-anxiety medication prior to the scan, orders have been placed for this. Case was discussed with Internal Medicine. Nothing further from an oncology standpoint, as patient needs to be discharged to order the PET scan. We will order when patient is discharged and contact his family with appointment date and time. all of family's questions were answered to their satisfaction and to the best of my ability. Current Visit: Yes Status: Acute Priority: High Code(s): C34.90 - MALIGNANT NEOPLASM OF UNSP PART OF UNSP BRONCHUS OR LUNG SNOMED Code(s): 356919791 (2) History of lung cancer Current Visit: Yes Status: Chronic Priority: High Code(s): Z85.118 - PERSONAL HISTORY OF MALIGNANT NEOPLASM OF BRONCHUS AND LUNG SNOMED Code(s): 879205236 Time with Patient: Greater than 30 (greater than 35 minutes spent, greater than 50% of time counseling and coordinating care)
--- NOTE | 2019-09-02 16:01 | P.PN ---
Subjective Progress Note Date: 09/02/19 Principal diagnosis: Is a 69-year-old male who was recently admitted with acute respiratory failure also had aspiration of food through the right trachea and is being closely monit ored. During hospitalization patient underwent a bronchoscopy and food was aspirated back although multiple lesions were noted there were verrucous and shape. Oncology is following. Some of the biopsies are showing squamous cell carcinoma at least in situ and patient will be requiring an MRI. Patient and family are now agreeable to the MRI in the order has been placed. Patient continues to be slightly confused although somewhat improved from previous. No reports of chest pain, shortness of breath, or palpitations. Patient is afebrile. Patient remains on dysphasia to ground diet with strict aspiration percussions and no straws. Will continue to monitor closely. Patient will be following up with oncology in the outpatient setting after the MRI for further testing. Objective - Vital Signs Vital signs: Vital Signs Temp 97.4 F L 09/02/19 12:14 Pulse 94 09/02/19 13:36 Resp 16 09/02/19 12:14 BP 166/87 09/02/19 12:14 Pulse Ox 96 09/02/19 12:14 Intake & Output 09/01/19 09/02/19 09/02/19 18:59 06:59 18:59 Intake Total 400 500 200 Output Total 1160 Balance -760 500 200 Weight 68 kg Intake: IV 400 400 Sodium Chloride 0.9% 1, 400 400 000 ml @ 50 mls/hr IV . Q20H [facility] Rx#:[id number] Intake, IV Titration 100 200 Amount Piperacillin-Tazobactam 3 100 200 .375 gm In Sodium Chloride 0.9% 100 ml @ 25 mls/hr IVPB Q8H [facility] Rx#: [id number] Output: Urine 1160 Other: Voiding Method Indwelling Catheter Urinal Urinal Diaper Diaper Incontinent Incontinent # Voids 1 # Bowel Movements 2 - Exam Gen: This is a 69-year-old male sitting up in the chair awake, slightly confused, well-developed, well-nourished. Temp is 97.4F, pulse is 76, respirations are 16, blood pressure 166/87, oxygen at saturation is 96% on room air. HEENT: Head is atraumatic, normocephalic. Pupils equal, round. Sclerae is anicteric. NECK: Supple. No JVD. No lymphadenopathy. No thyromegaly. LUNGS: Breath sounds diminished at the bases with a few scattered rhonchi and crackles noted. No intercostal retractions. HEART: S1, S2 are muffled ABDOMEN: Soft. Bowel sounds are present. No masses. No tenderness. EXTREMITIES: No pedal edema. No calf tenderness. NEUROLOGICAL: Patient is awake. Cranial nerves 2 through 12 are grossly intact. - Labs CBC & Chem 7: 09/01/19 04:02 09/01/19 04:02 Labs: Abnormal Lab Results - Last 24 Hours (Table) 09/02/19 Range/Units 11:28 POC Glucose (mg/dL) 102 H (75-99) mg/dL Microbiology - Last 24 Hours (Table) 08/29/19 22:30 Gram Stain - Final Sputum Sputum Culture - Final Assessment and Plan Assessment: Acute hypoxic respiratory failure secondary to pneumonia and aspiration of food, status post mechanical ventilation Possible right lung squamous cell carcinoma, right main branch bronchus recurrence Change in mental status and acute metabolic encephalopathy, multifactorial Acute metabolic acidosis History of left lung cancer left lung pneumonectomy hyperkalemia Anemia macrocytosis history of chest pain, angina history of gastroesophageal reflux disease hypothyroidism history of paranoid schizophrenia Hypertension Hyperlipidemia history of anxiety, depression, schizophrenia Remote history of nicotine dependence Full code Recommendations and discussion: Recommend continue current medications, management, and symptomatic treatment. Continue with bronchodilators as well as antibiotics at this time. Oncology is following. Patient awaiting to have an MRI. Due to multiple complex medical issues, prognosis is guarded. Further recommendations to follow. Possible discharge in 24 hours.
[2019-09-02 17:08] LABS: Glucose,Whole Blood 147 mg/dL (75-99)
--- NOTE | 2019-09-02 17:10 | P.PN ---
Subjective Progress Note Date: 09/02/19 On today's evaluation of 09/02/2019, the patient is being seen for a follow-up. The patient got out of the intensive care unit yesterday. He was extubated successfully is on room air oxygen. The endobronchial biopsies that were obtained from the right lung showed squamous cell carcinoma and the patient was made aware. The patient remains on IV Zosyn. The patient remains on bronchodilators. No new complaints otherwise for now. Oncology was again involved in the case. This is currently considered to be a new primary non- small cell lung cancer. An outpatient PET scan is being ordered and the patient will also have an MRI of the brain as part of the metastatic workup. Objective - Vital Signs Vital signs: Vital Signs Temp 97.4 F L 09/02/19 12:14 Pulse 94 09/02/19 13:36 Resp 16 09/02/19 12:14 BP 166/87 09/02/19 12:14 Pulse Ox 96 09/02/19 12:14 Intake & Output 09/01/19 09/02/19 09/02/19 18:59 06:59 18:59 Intake Total 400 500 200 Output Total 1160 Balance -760 500 200 Weight 68 kg Intake: IV 400 400 Sodium Chloride 0.9% 1, 400 400 000 ml @ 50 mls/hr IV . Q20H [facility] Rx#:[id number] Intake, IV Titration 100 200 Amount Piperacillin-Tazobactam 3 100 200 .375 gm In Sodium Chloride 0.9% 100 ml @ 25 mls/hr IVPB Q8H [facility] Rx#: [id number] Output: Urine 1160 Other: Voiding Method Indwelling Catheter Urinal Urinal Diaper Diaper Incontinent Incontinent # Voids 1 # Bowel Movements 2 - Exam Gen. appearance, comfortable no acute distress. Currently on room air oxygen. Head exam was generally normal. There was no scleral icterus or corneal arcus. Mucous membranes were moist. Neck was supple and without jugular venous distension, thyromegaly, or carotid bruits. Carotids were easily palpable bilaterally. There was no adenopathy. Lung examination shows no breath sounds on the left, diminished breath sounds in the right. Cardiac exam revealed the PMI to be normally situated and sized. The rhythm was regular and no extrasystoles were noted during several minutes of auscultation. The first and second heart sounds were normal and physiologic splitting of the second heart sound was noted. There were no murmurs, rubs, clicks, or gallops. Abdominal exam revealed normal bowel sounds. The abdomen was soft, non-tender, and without masses, organomegaly, or appreciable enlargement of the abdominal aorta. Examination of the extremities revealed easily palpable radial, femoral and pedal pulses. There was no cyanosis, clubbing or edema. Examination of the skin revealed no evidence of significant rashes, suspicious appearing nevi or other concerning lesions. Neurologic the patient is OAx3 Psychiatric negative history of schizophrenia - Labs CBC & Chem 7: 09/01/19 04:02 09/01/19 04:02 Labs: Abnormal Lab Results - Last 24 Hours (Table) 09/02/19 Range/Units 11:28 POC Glucose (mg/dL) 102 H (75-99) mg/dL Microbiology - Last 24 Hours (Table) 08/29/19 22:30 Gram Stain - Final Sputum Sputum Culture - Final Assessment and Plan Plan: 1 acute hypoxic/hypercapnic respiratory failure due to aspiration of foreign body/food material. The patient was also found to have some endobronchial tumor in the proximal bronchus intermedius and the distal right mainstem bronchus and the tricia the right upper lobe and the bronchus medius. Endobronchial biopsies obtained. Pathologist and pending for now.. Meanwhile, the patient was weaned off the mechanical ventilator patient was extubated and currently the patient is on room air oxygen. IV Zosyn for aspiration. 2 squamous cell carcinoma of the right lung base on endobronchial tumor involving the distal right mainstem bronchus and the tricia the right upper lobe and the right lower lobe. Oncology was consulted. MRI of the brain and a PET scan will be obtained as part of the metastatic workup. 2 left pneumonectomy for non-small cell lung cancer 3 COPD 4 paranoid schizophrenia 5 hypothyroidism 6 hypertension 7 hyperlipidemia 8 hyperkalemia, improved Plan Currently on room air oxygen. IV Zosyn for aspiration. MRI evaluation of the brain Outpatient PET scan Psychiatric we will be evaluating this patient. Psychiatric the also evaluated the patient. We'll continue Seroquel and Ativan and amantadine and there is a little and Depakene per recommendations by psychiatry. Family was updated We'll continue to follow
[2019-09-02 19:56] LABS: Glucose,Whole Blood 144 mg/dL (75-99)
[2019-09-02] MEDS: traZODone HCL 50 MG TAB PO SCH (21:01)
[2019-09-02] MEDS: guaiFENesin SYRUP 100MG/5ML 200 MG/10 ML CUP PO PRN (21:02)
[2019-09-03] MEDS: PIPERACILLIN-TAZOBACTAM 3.375 GM in SODIUM CHLORIDE 0.9% 100 ML IVPB SCH ×2 (03:10→10:28)
[2019-09-03] MEDS: guaiFENesin SYRUP 100MG/5ML 200 MG/10 ML CUP PO PRN (05:06)
[2019-09-03] MEDS: LEVOTHYROXINE 50 MCG TAB PO SCH (05:06)
[2019-09-03 05:19] VITALS: RESP 16
[2019-09-03 07:01] LABS: Glucose,Whole Blood 105 mg/dL (75-99)
[2019-09-03] MEDS: IPRATROPIUM-ALBUTEROL 3 ML NEB INHALATION SCH ×2 (07:25→13:26)
[2019-09-03] MEDS: DOCUSATE 100 MG CAP PO SCH (08:11)
[2019-09-03] MEDS: VALPROIC ACID ORAL SOLN 250 MG/5 ML CUP PO SCH (08:11)
[2019-09-03] MEDS: ASPIRIN 81 MG PO SCH (08:11)
[2019-09-03] MEDS: FAMOTIDINE 20 MG TAB PO SCH (08:11)
[2019-09-03] MEDS: LORazepam 1 MG TAB PO SCH (08:11)
[2019-09-03] MEDS: METOPROLOL TARTRATE 25 MG TAB PO SCH (08:11)
[2019-09-03] MEDS: AMANTADINE HCL 100 MG/10 ML CUP PO SCH (08:12)
[2019-09-03] MEDS: QUEtiapine 100 MG TAB PO SCH (08:14)
[2019-09-03] MEDS ORDERED: LORazepam 2 MG/ML INJ IV STA (10:20)
[2019-09-03] MEDS: SODIUM CHLORIDE 0.9% 1,000 ML IV SCH (10:26)
[2019-09-03 11:26] LABS: Glucose,Whole Blood 124 mg/dL (75-99)
--- NOTE | 2019-09-03 11:33 | MR ---
EXAMINATION TYPE: MR brain wo/w con DATE OF EXAM: 09/03/2019 COMPARISON: CT brain 08/29/2019 HISTORY: Staging, sq cell NSCLC TECHNIQUE: Multiplanar, multisequence images of the brain and brainstem is performed without and with IV contras t, utilizing 7 mL intravenous Gadavist . FINDINGS: Diffusion weighted images demonstrate no evidence of a recent infarct or other diffusion ab normality There is mild to moderate generalized degenerative change of the greater frontal lobe component. There is confluent as well as several focal areas of abnormal signal scattered throughout the white m atter in a nonspecific pattern but most typical remote microvascular ischemia. Tiny areas of abnormal signal in the basal ganglia could represent prominent Virchow-Marco spaces or tiny remote lacunar in farct. Midline structures demonstrate normal morphology. The craniocervical junction appears within normal limits. Post contrast images demonstrate no abnormal enhancement. The dural venous sinuses appear pa tent. Changes of chronic sinusitis and the globes are intact. IMPRESSION: 1. Degenerative and nonspecific white matter changes most typical remote microvascular ischemia. 2. No evidence of intracranial metastases
[2019-09-03 11:51] VITALS: BP 157/87; TEMP 97.6
[2019-09-03 13:37] VITALS: PULSE 92
--- NOTE | 2019-09-04 09:18 | P.DS ---
Providers Date of admission: 08/30/19 00:27 Expected date of discharge: 09/03/19 Attending physician: Lana Lindsey Consults: 08/30/19 00:27 Consult Physician Stat Consulting Provider: Raul Souza Consult Reason/Comments: Bronchial foreign body Do you want consulting provider notified?: Already Contacted 08/31/19 19:32 Consult Physician Routine Consulting Provider: Max Wallace Consult Reason/Comments: lung mass Do you want consulting provider notified?: Yes, Notify in am 09/01/19 11:56 Consult Physician Routine Consulting Provider: Ze Mendiola Consult Reason/Comments: schizophrenia Do you want consulting provider notified?: Yes Primary care physician: Miguel Bashir [facility] Course: Final diagnosis Acute hypoxic respiratory failure secondary to pneumonia and aspiration of food, status post mechanical ventilation Possible right lung squamous cell carcinoma, right main branch bronchus recurrence Change in mental status and acute metabolic encephalopathy, multifactorial Acute metabolic acidosis History of left lung cancer left lung pneumonectomy hyperkalemia Anemia macrocytosis history of chest pain, angina history of gastroesophageal reflux disease hypothyroidism history of paranoid schizophrenia Hypertension Hyperlipidemia history of anxiety, depression, schizophrenia Remote history of nicotine dependence Full code Discharge disposition Patient is being discharged in a stable condition with guarded prognosis to home and Patient will follow-up with Dr. Bashir upon discharge. Patient will also be following up with oncology in the outpatient setting.. Patient will continue with oral antibiotics in the form of Augmentin twice daily for the next 3 days. Total time taken is 35 minutes. History of present illness This is an 69-year-old male who was recently admitted with acute respiratory failure also had aspiration of food through the right trachea and was being closely monitored. During hospitalization patient underwent a bronchoscopy and the food was aspirated back by pulmonary and it was noted to have multiple lesions that were verrucous and shape. Oncology was also following. Some of the biopsies were showing squamous cell carcinoma at least in situ. During hospitalization an MRI was ordered showing no metastasis at this time. Patient will follow-up with oncology in the outpatient setting for possible PET scan in the near future. Patient will also follow-up with primary care provider Dr. Bashir upon discharge. Patient is to continue with dysphasia 2 ground diet with no straws and maintain strict aspiration precautions. Patient does live with sister and she cares for him in the home. Patient will also continue on bronchodilators and oral Augmentin twice daily for the next 3 days. Currently no reports of chest pain, shortness of breath, or palpitations. Patient is afebrile. No reports of nausea or vomiting and patient is tolerating diet. Guarded prognosis. On exam vital signs are stable. Temp is 97.6 F, pulse is 89, respirations are 16, blood pressure is 157/87, oxygen saturation is 97 % on room air. Cardio S1, S2 are muffled. Respiratory shows diminished breath sounds at the bases with a few scattered rhonchi noted. Abdomen is soft and nontender. Nervous system shows no focal deficits. Please refer to medication reconciliation sheet for a list of medications. Patient Condition at Discharge: Stable Plan - Discharge Summary Discharge Rx Participant: No New Discharge Prescriptions: New Amoxic-Pot Clav 875-125Mg [Augmentin 875-125] 1 tab PO BID 3 Days #6 tab Ipratropium-Albuterol Nebulize [Duoneb 0.5 mg-3 mg/3 ml Soln] 3 ml INHALATION RT-TID 30 Days #120 ml Ipratropium-Albuterol Nebulize [Duoneb 0.5 mg-3 mg/3 ml Soln] 3 ml INHALATION RT-TID PRN ml PRN Reason: Shortness Of Breath Or Wheezing predniSONE 10 mg PO DIRECTED #30 tab guaiFENesin SYRUP 100MG/5ML [Robitussin] 200 mg PO Q6H PRN #100 ml PRN Reason: Cough QUEtiapine [SEROquel] 300 mg PO BID 30 Days #60 tab Budesonide/Formoterol Fumarate [Symbicort 160-4.5 Mcg Inhaler] 1 puff IH BID #1 hfa.aer.ad Continue LORazepam [Ativan] 1 mg PO BID Amantadine HCl [Symmetrel] 100 mg PO BID Metoprolol Tartrate [Lopressor] 25 mg PO BID Docusate [Colace] 100 mg PO BID Aspirin EC [Ecotrin Low Dose] 81 mg PO DAILY Divalproex ER [Depakote ER] 500 mg PO HS Levothyroxine Sodium [Synthroid] 50 mcg PO DAILY traZODone HCL 50 mg PO HS Discontinued Doxycycline Hyclate 100 mg PO BID Discharge Medication List Amantadine HCl [Symmetrel] 100 mg PO BID 12/10/14 [History] LORazepam [Ativan] 1 mg PO BID 12/10/14 [History] Docusate [Colace] 100 mg PO BID 11/30/15 [History] Metoprolol Tartrate [Lopressor] 25 mg PO BID 11/30/15 [History] Aspirin EC [Ecotrin Low Dose] 81 mg PO DAILY 08/30/19 [History] Divalproex ER [Depakote ER] 500 mg PO HS 08/30/19 [History] Levothyroxine Sodium [Synthroid] 50 mcg PO DAILY 08/30/19 [History] traZODone HCL 50 mg PO HS 08/30/19 [History] Amoxic-Pot Clav 875-125Mg [Augmentin 875-125] 1 tab PO BID 3 Days #6 tab 09/03/19 [Rx] Budesonide/Formoterol Fumarate [Symbicort 160-4.5 Mcg Inhaler] 1 puff IH BID #1 hfa.aer.ad 09/03/19 [Rx] Ipratropium-Albuterol Nebulize [Duoneb 0.5 mg-3 mg/3 ml Soln] 3 ml INHALATION RT-TID 30 Days #120 ml 09/03/19 [Rx] Ipratropium-Albuterol Nebulize [Duoneb 0.5 mg-3 mg/3 ml Soln] 3 ml INHALATION RT-TID PRN ml 09/03/19 [Rx] QUEtiapine [SEROquel] 300 mg PO BID 30 Days #60 tab 09/03/19 [Rx] guaiFENesin SYRUP 100MG/5ML [Robitussin] 200 mg PO Q6H PRN #100 ml 09/03/19 [Rx] predniSONE 10 mg PO DIRECTED #30 tab 09/03/19 [Rx] Follow up Appointment(s)/Referral(s): Miguel Bashir MD [Primary Care Provider] - 09/17/19 2:15 pm () Max Wallace MD [STAFF PHYSICIAN] - 1 Week (The office will call you with the pet scan information per Dr. Hebert) Activity/Diet/Wound Care/Special Instructions: Activity Limited until follow-up Follow-up with primary care provider upon discharge Follow-up with oncology in the outpatient setting Continue with dysphasia to ground diet with no straws and aspiration precautions Continue with antibiotics until finished Discharge Disposition: HOME SELF-CARE
== END 2019-09-03 14:48 | disposition home or self-care (01) | DRG 208 ==
LOC: EC 22:18 → 2SICU 08-30 00:27 → 5NMEDONC 09-01 18:17
PROVIDERS: ADMIT Hospitalist; ATTEND Hospitalist
PROC: 0BH17EZ Insertion of Endotracheal Airway into Trachea, Via Natural or Artificial Opening (ICD-10-PCS; principal; 2019-08-30 09:19)
PROC: 0BB38ZX Excision of Right Main Bronchus, Via Natural or Artificial Opening Endoscopic, Diagnostic (ICD-10-PCS; principal; 2019-08-30 09:19)
PROC: 5A1945Z Respiratory Ventilation, 24-96 Consecutive Hours (ICD-10-PCS; principal; 2019-08-30 09:19)
DX: C78.01 Secondary malignant neoplasm of right lung (principal); J69.0 Pneumonitis due to inhalation of food and vomit; G93.41 Metabolic encephalopathy; J96.01 Acute respiratory failure with hypoxia; E87.2 Acidosis; J44.0 Chronic obstructive pulmonary disease with (acute) lower respiratory infection; E03.9 Hypothyroidism, unspecified; E78.5 Hyperlipidemia, unspecified; E87.5 Hyperkalemia; I10 Essential (primary) hypertension; K21.9 Gastro-esophageal reflux disease without esophagitis; D64.9 Anemia, unspecified; F32.9 Major depressive disorder, single episode, unspecified; F41.9 Anxiety disorder, unspecified; Z79.890 Hormone replacement therapy; Z79.899 Other long term (current) drug therapy; Z81.8 Family history of other mental and behavioral disorders; Z82.49 Family history of ischemic heart disease and other diseases of the circulatory system; Z82.5 Family history of asthma and other chronic lower respiratory diseases; Z85.118 Personal history of other malignant neoplasm of bronchus and lung; Z79.82 Long term (current) use of aspirin; Z87.891 Personal history of nicotine dependence
CPT/HCPCS: 31625; 36415; 36600; 70450; 70490; 70553; 71045; 71250; 80048; 80053; 80306; 81001; 82805; 84132; 84484; 85025; 85610; 85730; 87070; 87205; 88305; 94002; 94003; 94640; 94760

== ENCOUNTER → 2019-09-05 | Outpatient (CLI) | payer MEDICARE, BC ==
--- NOTE | 2019-09-06 15:16 | PE ---
Nuclear medicine PET/CT HISTORY: Lung carcinoma, subsequent Patient received 11.4 mCi F-18 FDG intravenously in delayed scanning was performed from the skull bas e to the mid thighs. Localization and attenuation correction CT scan was performed. Correlation to CT neck 08/31/2019, CT chest 08/29/2019 Neck and chest: There is a focus of hypermetabolic uptake within the tongue or floor of the mouth whi ch is indeterminate. There is no cervical adenopathy. Small left axillary node shows hypermetabolic u ptake. Postop changes are again noted within the left chest with volume loss status post left pneumon ectomy, pathology compensatory hypertrophy right lung. Endobronchial abnormal soft tissue on the righ t is again noted, axial image #88 and 87. There is right hilar associated hypermetabolic uptake. The mass in the right upper lobe seen on prior chest CT is again noted and shows associated hypermetaboli c uptake. There is some abnormal pleural density posteriorly and medially along the thoracic spine, a reas of associated hypermetabolic uptake are present at this level. ABDOMEN: Multiple foci of hypermetabolic uptake or abnormal within the liver, at least 10-15 lesions are present, there is associated hypoechoic density present within the dome of the liver and scattere d especially within the right lobe, largest measuring approximately 3.4 cm. There is no adrenal mass. There are some dense foci associated with the cortex of the left kidney. No definite hypermetabolic uptake. No retroperitoneal adenopathy or ascites. Osseous structures: Focus of uptake is present in the left sacrum. Suspect abnormal activity is assoc iated with the seventh thoracic vertebral body to the right of midline. IMPRESSION: Metastatic disease.
== END | disposition home or self-care (01) ==
LOC: RADPETMAIN 12:37
PROVIDERS: ATTEND Internal Medicine Hematology & Oncology
DX: C34.01 Malignant neoplasm of right main bronchus (principal); C79.9 Secondary malignant neoplasm of unspecified site
CPT/HCPCS: 78815; A9552